=== PATIENT | male | born 1960 | race Caucasian/White ===

== ENCOUNTER 2016-06-01 19:33 | Emergency (ER) | payer SELFPAY ==
[~2016-06-01] VITALS: Ht 172.7 cm; Wt 109.0 kg
[2016-06-01 20:07] VITALS: BP 189/97
== END 2016-06-01 20:45 | disposition left against medical advice (07) ==
LOC: ER 19:35
DX: R41.82 Altered mental status, unspecified (principal); S50.812A Abrasion of left forearm, initial encounter; S50.811A Abrasion of right forearm, initial encounter; I11.9 Hypertensive heart disease without heart failure; I48.91 Unspecified atrial fibrillation; E78.00 Pure hypercholesterolemia, unspecified; F10.20 Alcohol dependence, uncomplicated; W01.0XXA Fall on same level from slipping, tripping and stumbling without subsequent striking against object, initial encounter; Y93.89 Activity, other specified; Y92.89 Other specified places as the place of occurrence of the external cause; Y99.8 Other external cause status
CPT/HCPCS: 99283; Z7610

== ENCOUNTER 2016-12-19 20:16 | Emergency (ER) | payer MEDICAID ==
[~2016-12-19] VITALS: Ht 172.7 cm; Wt 116.0 kg
[2016-12-20] MEDS ORDERED: MORPHINE SULFATE 1MG/ML 1ML INJ SYR(NEO) IV ONE (05:00)
[2016-12-20] MEDS ORDERED: VANCOMYCIN 1 G PREMIX 200 ML IV SCH (05:00)
[2016-12-20 05:11] LABS: BASOPHILS % 1.1 % (0.0-2.0); EOSINOPHILS % 3.8 % (0.0-5.0); HEMATOCRIT. 33.7 % (42.0-52.0); HEMOGLOBIN. 11.1 g/dL (14.0-18.0); LYMPHOCYTES % 23.7 % (20.0-50.0); MEAN CORPUSCULAR HEMOGLOBIN 31.1 pg (28.0-32.0); MEAN CORPUSCULAR VOLUME 94.7 fL (80.0-94.0); MEAN PLATELET VOLUME 8.4 fl (7.4-10.4); MONOCYTES % 10.7 % (2.0-8.0); NEUTROPHILS % 60.7 % (40.0-76.0); PLATELET 131 x1000/uL (130-400); RED BLOOD CELL COUNT 3.56 mill/uL (4.7-6.1); RED CELL DISTRIBUTION WIDTH 17.3 % (11.6-14.6)
[2016-12-20] MEDS ORDERED: MORPHINE SULFATE 4 MG/ML CPJ (NOT FOR IM USE) IV NR (05:19)
[2016-12-20 05:21] LABS: CARBON DIOXIDE 25 mEq/L (21-32); CHLORIDE 103 mEq/L (98-107)
[2016-12-20 05:48] VITALS: BP 160/113
== END 2016-12-20 08:40 | disposition home or self-care (01) ==
LOC: ER 20:43
DX: L03.116 Cellulitis of left lower limb (principal); I10 Essential (primary) hypertension; E78.00 Pure hypercholesterolemia, unspecified; I48.91 Unspecified atrial fibrillation
CPT/HCPCS: 36415; 73630; 80048; 85025; 93971; 96365; 96366; 96375; 99285; J2270; J3370; Z7610

== ENCOUNTER 2017-05-28 16:15 | Emergency (ER) | payer MEDICAID ==
[~2017-05-28] VITALS: Ht 175.3 cm; Wt 110.0 kg
[2017-05-28 20:38] VITALS: BP 127/82
== END 2017-05-28 20:45 | disposition home or self-care (01) ==
LOC: ER 16:29
DX: S93.492A Sprain of other ligament of left ankle, initial encounter (principal); M25.552 Pain in left hip; E78.00 Pure hypercholesterolemia, unspecified; F10.129 Alcohol abuse with intoxication, unspecified; I10 Essential (primary) hypertension; I48.91 Unspecified atrial fibrillation; W18.30XA Fall on same level, unspecified, initial encounter; Y93.01 Activity, walking, marching and hiking; Y99.8 Other external cause status; Y92.89 Other specified places as the place of occurrence of the external cause
CPT/HCPCS: 73502; 73610; 99284; Z7610

== ENCOUNTER 2017-07-08 15:28 | Emergency (ER) | payer MEDICAID ==
[~2017-07-08] VITALS: Ht 180.3 cm; Wt 105.0 kg
[2017-07-08] MEDS ORDERED: ONDANSETRON HCL 4MG/2ML VIAL IV ONE (17:45)
[2017-07-08] MEDS ORDERED: SODIUM CHLORIDE 0.9% 1,000 ML IV ONE (17:45)
[2017-07-08] MEDS ORDERED: TETANUS, DIPHTHERIA, PERTUSSIS VAC/PF 0.5ML (>7YR OLD) IM ONE (17:45)
[2017-07-08] MEDS ORDERED: ACETAMINOPHEN 325MG TABLET PO ONE (17:45)
[2017-07-08 18:36] LABS: *AMPHETAMINES SCREEN URINE NEGATIVE (NEGATIVE); *BARBITURATES SCREEN URINE NEGATIVE (NEGATIVE); *BENZODIAZEPINES SCREEN URINE NEGATIVE (NEGATIVE); *COCAINE SCREEN URINE NEGATIVE (NEGATIVE)
[2017-07-08 18:37] LABS: CANNABINOID URINE SCREEN NEGATIVE (NEGATIVE); METHADONE URINE SCREEN NEGATIVE (NEGATIVE); OPIATES URINE SCREEN NEGATIVE (NEGATIVE); PHENCYCLIDINE URINE SCREEN NEGATIVE (NEGATIVE)
[2017-07-09 01:51] VITALS: BP 132/80
== END 2017-07-09 02:21 | disposition home or self-care (01) ==
LOC: ER 15:34
DX: S00.81XA Abrasion of other part of head, initial encounter (principal); F10.129 Alcohol abuse with intoxication, unspecified; M25.562 Pain in left knee; M25.551 Pain in right hip; I48.91 Unspecified atrial fibrillation; I10 Essential (primary) hypertension; E78.00 Pure hypercholesterolemia, unspecified; W10.9XXA Fall (on) (from) unspecified stairs and steps, initial encounter; Y93.89 Activity, other specified; Y92.89 Other specified places as the place of occurrence of the external cause; Y99.8 Other external cause status
CPT/HCPCS: 36415; 70450; 70486; 72170; 73562; 80305; 90471; 90715; 96361; 96374; 99285; G0482; J2405; J7030; Z7610

== ENCOUNTER 2019-04-13 13:03 | Emergency (ER) | payer MEDICAID ==
[~2019-04-13] VITALS: Ht 172.7 cm; Wt 118.0 kg
[2019-04-13] MEDS ORDERED: IBUPROFEN 600MG TABLET PO ONE (15:15)
[2019-04-13] MEDS ORDERED: AMOXICILLIN/POTASSIUM CLAVULANATE 875/125MG TAB PO ONE (15:15)
[2019-04-13 15:23] VITALS: BP 141/96
== END 2019-04-13 16:05 | disposition home or self-care (01) ==
LOC: ER 13:19
DX: H66.012 Acute suppurative otitis media with spontaneous rupture of ear drum, left ear (principal); I10 Essential (primary) hypertension; I48.91 Unspecified atrial fibrillation; E78.00 Pure hypercholesterolemia, unspecified
CPT/HCPCS: 99283

== ENCOUNTER 2020-07-25 00:36 | Emergency (ER) | payer MEDICAID ==
[~2020-07-25] VITALS: Ht 172.7 cm; Wt 118.0 kg
[~2020-07-25 00:36] MED LIST: ACET-2708 MT; ASPI-1406 MT; AZIT250T12 PO; CARV25TA47 MT; FURO40TA5 PO; SPIR25TA PO
[2020-07-25] MEDS ORDERED: BACITRACIN ZINC OINT UDPKT TOP ONE (01:45)
[2020-07-25 03:15] VITALS: BP 103/74
[2020-07-25 04:08] LABS: HEMATOCRIT. 25.1 % (42.0-52.0); HEMOGLOBIN. 8.1 g/dL (14.0-18.0); MEAN CORPUSCULAR HEMOGLOBIN 29.9 pg (28.0-32.0); MEAN CORPUSCULAR VOLUME 93.1 fL (80.0-94.0); MEAN PLATELET VOLUME 7.8 fl (7.4-10.4); PLATELET 126 x1000/uL (130-400); RED CELL DISTRIBUTION WIDTH 17.3 % (11.6-14.6)
[2020-07-25] MEDS ORDERED: LIDOCAINE HCL/EPINEPHRINE 1%-EPI 1:100,000 10 ML VIAL IJ ONE (04:30)
[2020-07-25] MEDS ORDERED: LIDOCAINE HCL/EPINEPHRINE 1%-EPI 1:100,000 20 ML VIAL INFIL SCH (06:15)
[2020-07-25 07:06] LABS: PLATELET ESTIMATE NORMAL
== END 2020-07-25 03:15 | disposition home or self-care (01) ==
LOC: ER 01:33
DX: I83.892 Varicose veins of left lower extremity with other complications (principal); I49.9 Cardiac arrhythmia, unspecified; I11.0 Hypertensive heart disease with heart failure; I50.9 Heart failure, unspecified; E78.00 Pure hypercholesterolemia, unspecified; Z79.82 Long term (current) use of aspirin; Z79.899 Other long term (current) drug therapy
CPT/HCPCS: 12001; 36415; 85025; 93005; 99284; J3490

== ENCOUNTER 2020-08-10 23:36 | Inpatient (IN) | payer MEDICAID ==
[~2020-08-10] VITALS: Ht 172.7 cm; Wt 121.8 kg
[2020-08-11] VITALS (7 sets, daily range): BP systolic 85–110; BP diastolic 53–61
[2020-08-11] MEDS ORDERED: ACETAMINOPHEN 325MG TABLET PO STA (00:32)
[2020-08-11] MEDS ORDERED: SODIUM CHLORIDE 0.9% 500 ML IV ONE (00:45)
[2020-08-11 00:52] LABS: CLARITY URINE CLEAR (CLEAR); COLOR URINE YELLOW (YELLOW); KETONES URINE NEGATIVE (NEGATIVE); LEUKOCYTE ESTERASE URINE NEGATIVE (NEGATIVE); NITRITE URINE NEGATIVE (NEGATIVE); OCCULT BLOOD URINE NEGATIVE (NEGATIVE); PROTEIN URINE NEGATIVE (NEGATIVE); SPECIFIC GRAVITY URINE 1.016 (1.005-1.030)
[2020-08-11 01:14] LABS: MEAN CORPUSCULAR HEMOGLOBIN 30.4 pg (28.0-32.0); MEAN CORPUSCULAR VOLUME 92.9 fL (80.0-94.0); MEAN PLATELET VOLUME 7.8 fl (7.4-10.4); PLATELET 115 x1000/uL (130-400); RED BLOOD CELL COUNT 1.93 mill/uL (4.7-6.1); RED CELL DISTRIBUTION WIDTH 17.4 % (11.6-14.6)
[2020-08-11 01:19] LABS: HEMOGLOBIN. 5.9 g/dL (14.0-18.0)
[2020-08-11 01:20] LABS: CHLORIDE 98 mEq/L (98-107); HEMATOCRIT. 17.9 % (42.0-52.0)
[2020-08-11 07:46] LABS: PLATELET ESTIMATE SLIGHTLY DECREASED
[2020-08-11] MEDS ORDERED: ACETAMINOPHEN 325MG TABLET PO PRN (09:00)
[2020-08-11] MEDS ORDERED: ONDANSETRON HCL 4MG/2ML INJ IV PRN (09:00)
[2020-08-11] MEDS: PANTOPRAZOLE SODIUM 40 MG/VIAL IV SCH ×2 (09:49→21:25)
[2020-08-11] MEDS: MIDODRINE HCL 5MG TABLET PO SCH ×3 (09:49→17:52)
[2020-08-11 11:20] LABS: *AMPHETAMINES SCREEN URINE NEGATIVE (NEGATIVE); *BARBITURATES SCREEN URINE NEGATIVE (NEGATIVE); *BENZODIAZEPINES SCREEN URINE NEGATIVE (NEGATIVE); *COCAINE SCREEN URINE NEGATIVE (NEGATIVE); METHADONE URINE SCREEN NEGATIVE (NEGATIVE); OPIATES URINE SCREEN NEGATIVE (NEGATIVE)
[2020-08-11 11:21] LABS: CANNABINOID URINE SCREEN NEGATIVE (NEGATIVE); PHENCYCLIDINE URINE SCREEN NEGATIVE (NEGATIVE)
[2020-08-11] MEDS ORDERED: PANTOPRAZOLE SODIUM 40 MG/VIAL IV SCH (11:45)
[2020-08-11 12:36] LABS: TOTAL IRON BINDING CAPACITY 473 ug/dL (250-450)
[2020-08-11 12:52] LABS: FOLIC ACID (FOLATE) SERUM 8.4 ng/mL (>5.38)
[2020-08-11 15:28] LABS: HEMATOCRIT 22.7 % (42.0-52.0); HEMOGLOBIN 7.2 g/dL (14.0-18.0)
[2020-08-11 15:58] LABS: HEPATITIS B SURFACE ANTIGEN NEGATIVE
[2020-08-11 16:28] LABS: HEPATITIS A AB IGM NEGATIVE (NEGATIVE)
[2020-08-11] MEDS ORDERED: SPIR25TA6 PO (16:32)
[2020-08-11] MEDS ORDERED: *PATIENT'S OWN MEDICATION STORAGE XX SCH (17:00)
[2020-08-11] MEDS: POLYETHYLENE GLYCOL 3350 (17GM) 1 DOSE PACK PO SCH (17:51)
[2020-08-11] MEDS: FERROUS SULFATE 325MG TABLET PO SCH (17:51)
[2020-08-12] VITALS (7 sets, daily range): BP systolic 81–95; BP diastolic 44–62
[2020-08-12 01:59] LABS: INR 1.2; PROTHROMBIN TIME 12.7 sec (9.6-11.0)
[2020-08-12 07:08] LABS: HEMATOCRIT. 23.8 % (42.0-52.0); HEMOGLOBIN. 7.6 g/dL (14.0-18.0); MEAN CORPUSCULAR HEMOGLOBIN 29.4 pg (28.0-32.0); MEAN CORPUSCULAR VOLUME 91.6 fL (80.0-94.0); MEAN PLATELET VOLUME 8.1 fl (7.4-10.4); PLATELET 111 x1000/uL (130-400); RED CELL DISTRIBUTION WIDTH 18.7 % (11.6-14.6)
[2020-08-12] MEDS: FERROUS SULFATE 325MG TABLET PO SCH ×3 (08:32→16:42)
[2020-08-12] MEDS: ASCORBIC ACID 500 MG TABLET PO SCH (08:33)
[2020-08-12] MEDS: MIDODRINE HCL 5MG TABLET PO SCH ×3 (08:33→16:42)
[2020-08-12] MEDS: POLYETHYLENE GLYCOL 3350 (17GM) 1 DOSE PACK PO SCH (08:34)
[2020-08-12] MEDS: PANTOPRAZOLE SODIUM 40 MG/VIAL IV SCH ×2 (08:34→21:41)
[2020-08-12 11:40] LABS: NUCLEATED RED BLOOD CELLS 1 /100 WBC
[2020-08-12 11:41] LABS: PLATELET ESTIMATE SLIGHTLY DECREASED
[2020-08-12] MEDS: FUROSEMIDE 20MG/2ML VIAL IVP SCH (13:41)
[2020-08-12] MEDS: SORBITOL 70% SOLN 30ML PO SCH (18:51)
[2020-08-12] MEDS: IRON SUCROSE COMPLEX 100 MG/5 ML ML IV SCH (21:41)
[2020-08-12] MEDS ORDERED: SODIUM CHLORIDE 0.9% 1,000 ML IV ONE (23:15)
[2020-08-13] VITALS (11 sets, daily range): BP systolic 80–104; BP diastolic 41–90
[2020-08-13] MEDS: SORBITOL 70% SOLN 30ML PO SCH (02:30)
[2020-08-13 07:25] LABS: HEMATOCRIT. 21.9 % (42.0-52.0); MEAN CORPUSCULAR HEMOGLOBIN 28.8 pg (28.0-32.0); MEAN CORPUSCULAR VOLUME 90.7 fL (80.0-94.0); MEAN PLATELET VOLUME 7.9 fl (7.4-10.4); PLATELET 129 x1000/uL (130-400); RED BLOOD CELL COUNT 2.41 mill/uL (4.7-6.1); RED CELL DISTRIBUTION WIDTH 18.1 % (11.6-14.6)
[2020-08-13] MEDS: FERROUS SULFATE 325MG TABLET PO SCH ×3 (08:12→18:32)
[2020-08-13] MEDS: ASCORBIC ACID 500 MG TABLET PO SCH (08:13)
[2020-08-13] MEDS: MIDODRINE HCL 5MG TABLET PO SCH ×3 (08:13→18:32)
[2020-08-13] MEDS: PANTOPRAZOLE SODIUM 40 MG/VIAL IV SCH ×2 (08:14→20:53)
[2020-08-13] MEDS: FUROSEMIDE 20MG/2ML VIAL IVP SCH (08:14)
[2020-08-13] MEDS: POLYETHYLENE GLYCOL 3350 (17GM) 1 DOSE PACK PO SCH (08:14)
[2020-08-13 10:05] LABS: PLATELET ESTIMATE SLIGHTLY DECREASED
[2020-08-13] MEDS ORDERED: SORBITOL 70% SOLN 30ML PO PRN (13:30)
[2020-08-13] MEDS: IRON SUCROSE COMPLEX 100 MG/5 ML ML IV SCH (20:53)
[2020-08-14] VITALS (11 sets, daily range): BP systolic 82–103; BP diastolic 38–67
[2020-08-14 06:39] LABS: HEMATOCRIT. 22.5 % (42.0-52.0); HEMOGLOBIN. 7.4 g/dL (14.0-18.0); MEAN CORPUSCULAR HEMOGLOBIN 29.8 pg (28.0-32.0); MEAN CORPUSCULAR VOLUME 90.6 fL (80.0-94.0); MEAN PLATELET VOLUME 7.5 fl (7.4-10.4); PLATELET 125 x1000/uL (130-400); RED BLOOD CELL COUNT 2.49 mill/uL (4.7-6.1); RED CELL DISTRIBUTION WIDTH 18.4 % (11.6-14.6)
[2020-08-14] MEDS: FUROSEMIDE 20MG/2ML VIAL IVP SCH (08:35)
[2020-08-14] MEDS: PANTOPRAZOLE SODIUM 40 MG/VIAL IV SCH ×2 (08:36→20:46)
[2020-08-14] MEDS: MIDODRINE HCL 5MG TABLET PO SCH ×3 (08:36→17:59)
[2020-08-14] MEDS: FERROUS SULFATE 325MG TABLET PO SCH ×3 (08:36→17:59)
[2020-08-14] MEDS: POLYETHYLENE GLYCOL 3350 (17GM) 1 DOSE PACK PO SCH (08:36)
[2020-08-14] MEDS: ASCORBIC ACID 500 MG TABLET PO SCH (08:36)
[2020-08-14 11:56] LABS: NUCLEATED RED BLOOD CELLS 1 /100 WBC
[2020-08-14 11:57] LABS: PLATELET ESTIMATE NORMAL
[2020-08-14] MEDS ORDERED: SORBITOL 70% SOLN 30ML PO NR ×2 (13:00→17:00)
[2020-08-14] MEDS: IRON SUCROSE COMPLEX 100 MG/5 ML ML IV SCH (19:53)
[2020-08-14 20:46] LABS: HEMATOCRIT 25.9 % (42.0-52.0); HEMOGLOBIN 8.5 g/dL (14.0-18.0)
[2020-08-15] VITALS: BP 91/57
[2020-08-15 04:00] VITALS: BP 97/70
[2020-08-15 06:27] LABS: INR 1.2; PROTHROMBIN TIME 12.7 sec (9.6-11.0)
[2020-08-15 06:32] LABS: CHLORIDE 105 mEq/L (98-107)
[2020-08-15 06:44] LABS: HEMATOCRIT. 28.7 % (42.0-52.0); HEMOGLOBIN. 8.7 g/dL (14.0-18.0); MEAN CORPUSCULAR VOLUME 98.7 fL (80.0-94.0); MEAN PLATELET VOLUME 7.9 fl (7.4-10.4); PLATELET 128 x1000/uL (130-400); RED BLOOD CELL COUNT 2.91 mill/uL (4.7-6.1); RED CELL DISTRIBUTION WIDTH 19.1 % (11.6-14.6)
[2020-08-15 08:00] VITALS: BP 103/73
[2020-08-15] MEDS ORDERED: SORBITOL 70% SOLN 30ML PO NR ×2 (09:45→16:00)
[2020-08-15] MEDS: PANTOPRAZOLE SODIUM 40 MG/VIAL IV SCH ×2 (09:58→20:58)
[2020-08-15] MEDS: POLYETHYLENE GLYCOL 3350 (17GM) 1 DOSE PACK PO SCH (09:59)
[2020-08-15] MEDS: MIDODRINE HCL 5MG TABLET PO SCH ×3 (09:59→18:48)
[2020-08-15] MEDS: FERROUS SULFATE 325MG TABLET PO SCH ×3 (09:59→18:48)
[2020-08-15] MEDS: ASCORBIC ACID 500 MG TABLET PO SCH (09:59)
[2020-08-15] MEDS: FUROSEMIDE 20MG/2ML VIAL IVP SCH (10:04)
[2020-08-15 12:00] VITALS: BP 101/61
[2020-08-15 16:00] VITALS: BP 104/65
[2020-08-15 16:17] LABS: PLATELET ESTIMATE DECREASED
[2020-08-15 21:28] VITALS: BP 96/62
[2020-08-16] VITALS (7 sets, daily range): BP systolic 92–127; BP diastolic 61–99
[2020-08-16 06:52] LABS: HEMATOCRIT. 26.9 % (42.0-52.0); HEMOGLOBIN. 8.7 g/dL (14.0-18.0); MEAN CORPUSCULAR HEMOGLOBIN 29.9 pg (28.0-32.0); MEAN CORPUSCULAR VOLUME 92.3 fL (80.0-94.0); MEAN PLATELET VOLUME 7.1 fl (7.4-10.4); PLATELET 147 x1000/uL (130-400); RED BLOOD CELL COUNT 2.91 mill/uL (4.7-6.1); RED CELL DISTRIBUTION WIDTH 18.3 % (11.6-14.6)
[2020-08-16 06:58] LABS: CHLORIDE 105 mEq/L (98-107)
[2020-08-16] MEDS: FERROUS SULFATE 325MG TABLET PO SCH ×3 (07:40→17:40)
[2020-08-16] MEDS: PANTOPRAZOLE SODIUM 40 MG/VIAL IV SCH ×2 (08:46→22:23)
[2020-08-16] MEDS: FUROSEMIDE 20MG/2ML VIAL IVP SCH (08:46)
[2020-08-16] MEDS: POLYETHYLENE GLYCOL 3350 (17GM) 1 DOSE PACK PO SCH (08:47)
[2020-08-16] MEDS: MIDODRINE HCL 5MG TABLET PO SCH ×3 (08:47→17:00)
[2020-08-16] MEDS: ASCORBIC ACID 500 MG TABLET PO SCH (08:47)
[2020-08-16] MEDS ORDERED: MIDAZOLAM HCL 5 MG/5 ML VIAL ONE (15:55)
[2020-08-16] MEDS ORDERED: HYDROMORPHONE HCL/PF 2MG/ML (OR) ONE (15:55)
[2020-08-16] MEDS ORDERED: LIDOCAINE HCL/PF 1% 10 MG/ML 5ML VIAL ONE (15:57)
[2020-08-16] MEDS ORDERED: PROPOFOL 200MG/20ML VIAL IV ONE (15:57)
[2020-08-16] MEDS ORDERED: MEPERIDINE HCL/PF 25MG/ML CPJ IV PRN (16:30)
[2020-08-16] MEDS ORDERED: ONDANSETRON HCL 4MG/2ML INJ IV PRN (16:30)
[2020-08-16] MEDS ORDERED: HYDROMORPHONE HCL/PF 2MG/ML CPJ IV PRN (16:30)
[2020-08-16] MEDS ORDERED: LABETALOL 5MG/ML SYR 20 MG/4 ML SYRINGE IV PRN (16:30)
[2020-08-16 17:41] LABS: PLATELET ESTIMATE NORMAL
[2020-08-16 21:05] LABS: CHLORIDE 105 mEq/L (98-107)
[2020-08-16 23:50] LABS: HEMATOCRIT 30.1 % (42.0-52.0); HEMOGLOBIN 9.6 g/dL (14.0-18.0); MEAN CORPUSCULAR HEMOGLOBIN 29.5 pg (28.0-32.0); MEAN CORPUSCULAR VOLUME 92.1 fL (80.0-94.0); PLATELET 173 x1000/uL (130-400); RED BLOOD CELL COUNT 3.26 mill/uL (4.7-6.1); RED CELL DISTRIBUTION WIDTH 18.4 % (11.6-14.6)
[2020-08-17 04:00] VITALS: BP 105/61
[2020-08-17 08:43] VITALS: BP 101/62
[2020-08-17] MEDS: FUROSEMIDE 20MG/2ML VIAL IVP SCH (08:46)
[2020-08-17] MEDS: ASCORBIC ACID 500 MG TABLET PO SCH (08:47)
[2020-08-17] MEDS: MIDODRINE HCL 5MG TABLET PO SCH ×3 (08:47→17:06)
[2020-08-17] MEDS: POLYETHYLENE GLYCOL 3350 (17GM) 1 DOSE PACK PO SCH (08:47)
[2020-08-17] MEDS: FERROUS SULFATE 325MG TABLET PO SCH ×3 (08:47→17:06)
[2020-08-17] MEDS: PANTOPRAZOLE SODIUM 40 MG/VIAL IV SCH ×2 (08:47→20:45)
[2020-08-17 12:00] VITALS: BP 101/73
[2020-08-17 16:00] VITALS: BP 105/59
[2020-08-17] MEDS: GUAIFENESIN-DM 200MG-20MG/10ML UDC PO PRN (17:06)
[2020-08-17 20:00] VITALS: BP 100/68
[2020-08-18 00:07] VITALS: BP 102/64
[2020-08-18 04:00] VITALS: BP 109/63
[2020-08-18] MEDS: FERROUS SULFATE 325MG TABLET PO SCH ×3 (06:41→17:11)
[2020-08-18 07:57] VITALS: BP 91/59
[2020-08-18] MEDS: POLYETHYLENE GLYCOL 3350 (17GM) 1 DOSE PACK PO SCH (09:00)
[2020-08-18 10:14] LABS: CHLORIDE 102 mEq/L (98-107)
[2020-08-18] MEDS: FUROSEMIDE 20MG/2ML VIAL IVP SCH (11:01)
[2020-08-18] MEDS: ASCORBIC ACID 500 MG TABLET PO SCH (11:02)
[2020-08-18] MEDS: PANTOPRAZOLE SODIUM 40 MG/VIAL IV SCH ×2 (11:02→20:19)
[2020-08-18] MEDS: MIDODRINE HCL 5MG TABLET PO SCH ×3 (11:02→17:14)
[2020-08-18 12:29] VITALS: BP 101/58
[2020-08-18 16:00] VITALS: BP 110/66
[2020-08-18 20:00] VITALS: BP 116/55
[2020-08-19] VITALS: BP 106/51
[2020-08-19 04:00] VITALS: BP 103/50
[2020-08-19] MEDS: FERROUS SULFATE 325MG TABLET PO SCH ×3 (06:47→17:00)
[2020-08-19] MEDS ORDERED: DIATR MEGLU/DIATRIZOATE SOLN 30ML PO NR (08:30)
[2020-08-19 08:39] VITALS: BP 113/70
[2020-08-19] MEDS: ASCORBIC ACID 500 MG TABLET PO SCH (08:44)
[2020-08-19] MEDS: PANTOPRAZOLE SODIUM 40 MG/VIAL IV SCH ×2 (08:44→20:38)
[2020-08-19] MEDS: MIDODRINE HCL 5MG TABLET PO SCH ×3 (08:45→17:00)
[2020-08-19] MEDS: FUROSEMIDE 20MG/2ML VIAL IVP SCH (08:45)
[2020-08-19] MEDS ORDERED: MAGNESIUM CITRATE 300ML SOLUTION PO ONE (09:00)
[2020-08-19 11:48] VITALS: BP 118/65
[2020-08-19] MEDS: POLYETHYLENE GLYCOL 3350 (17GM) 1 DOSE PACK PO SCH (11:58)
[2020-08-19] MEDS: METRONIDAZOLE 500MG TABLET PO SCH ×2 (12:48→14:21)
[2020-08-19] MEDS: NEOMYCIN 500MG TABLET PO SCH ×2 (12:49→15:14)
[2020-08-19] MEDS ORDERED: NEOMYCIN 500MG TABLET PO NR (15:15)
[2020-08-19] MEDS ORDERED: IOHEXOL-300 100 ML BOTTLE ONE (15:24)
[2020-08-19 15:56] VITALS: BP 110/60
[2020-08-19 20:00] VITALS: BP 122/80
[2020-08-19] MEDS ORDERED: NEOMYCIN 500MG TABLET PO SCH (23:00)
[2020-08-19] MEDS ORDERED: METRONIDAZOLE 500MG TABLET PO ONE (23:00)
[2020-08-20] VITALS: BP 120/70
[2020-08-20 04:00] VITALS: BP 112/62
[2020-08-20] MEDS: FERROUS SULFATE 325MG TABLET PO SCH ×3 (06:05→17:27)
[2020-08-20 07:02] LABS: CHLORIDE 102 mEq/L (98-107)
[2020-08-20] MEDS ORDERED: POLYMYXIN B SULFATE 500000 UNITS/VIAL ONE (07:03)
[2020-08-20] MEDS ORDERED: BUPIVACAINE HCL 0.5% (5MG/ML) 50ML ONE (07:03)
[2020-08-20] MEDS ORDERED: LIDOCAINE HCL 1% 20ML VIAL (Pyxis) INJ ONE (07:03)
[2020-08-20 07:22] LABS: HEMATOCRIT. 26.4 % (42.0-52.0); HEMOGLOBIN. 8.7 g/dL (14.0-18.0); MEAN CORPUSCULAR HEMOGLOBIN 29.5 pg (28.0-32.0); MEAN CORPUSCULAR VOLUME 89.5 fL (80.0-94.0); MEAN PLATELET VOLUME 6.9 fl (7.4-10.4); PLATELET 156 x1000/uL (130-400); RED BLOOD CELL COUNT 2.95 mill/uL (4.7-6.1); RED CELL DISTRIBUTION WIDTH 17.9 % (11.6-14.6)
[2020-08-20] MEDS ORDERED: ROCURONIUM BROMIDE 10MG/ML VIAL 5ML IV ONE (07:57)
[2020-08-20] MEDS ORDERED: HYDROMORPHONE HCL/PF 2MG/ML (OR) ONE (07:57)
[2020-08-20] MEDS ORDERED: DEXAMETHASONE 4MG/ML 1ML VIAL ONE (07:58)
[2020-08-20] MEDS: FUROSEMIDE 20MG/2ML VIAL IVP SCH (09:00)
[2020-08-20] MEDS: MIDODRINE HCL 5MG TABLET PO SCH ×3 (09:00→17:00)
[2020-08-20] MEDS: POLYETHYLENE GLYCOL 3350 (17GM) 1 DOSE PACK PO SCH (09:00)
[2020-08-20] MEDS: ASCORBIC ACID 500 MG TABLET PO SCH (09:00)
[2020-08-20] MEDS: PANTOPRAZOLE SODIUM 40 MG/VIAL IV SCH ×2 (09:00→20:35)
[2020-08-20] MEDS ORDERED: ALBUMIN HUMAN 25GM/100ML (25%) IV ONE (09:26)
[2020-08-20] MEDS ORDERED: METOPROLOL TARTRATE 5MG/5ML VIAL IV ONE (10:52)
[2020-08-20] MEDS ORDERED: ONDANSETRON HCL 4MG/2ML INJ IV PRN (11:00)
[2020-08-20] MEDS ORDERED: LABETALOL 5MG/ML SYR 20 MG/4 ML SYRINGE IV PRN (11:00)
[2020-08-20] MEDS ORDERED: MEPERIDINE HCL/PF 25MG/ML CPJ IV PRN (11:00)
[2020-08-20] MEDS ORDERED: HYDROMORPHONE HCL/PF 2MG/ML CPJ IV PRN (11:00)
[2020-08-20] MEDS ORDERED: ONDANSETRON INJ IV PRN (11:15)
[2020-08-20] MEDS ORDERED: NALOXONE INJ IV PRN (11:15)
[2020-08-20] MEDS ORDERED: HYDROMORPHONE PCA 10MG/50ML IV PRN (11:15)
[2020-08-20] MEDS ORDERED: DIPHENHYDRAMINE INJ IV PRN (11:15)
[2020-08-20 14:00] VITALS: BP 120/61
[2020-08-20 16:00] VITALS: BP 135/72
[2020-08-20 17:22] LABS: HEMATOCRIT. 27.4 % (42.0-52.0); HEMOGLOBIN. 8.9 g/dL (14.0-18.0); MEAN CORPUSCULAR HEMOGLOBIN 29.7 pg (28.0-32.0); MEAN CORPUSCULAR VOLUME 91.5 fL (80.0-94.0); MEAN PLATELET VOLUME 6.6 fl (7.4-10.4); PLATELET 179 x1000/uL (130-400); RED CELL DISTRIBUTION WIDTH 18.6 % (11.6-14.6)
[2020-08-20 18:26] LABS: PLATELET ESTIMATE NORMAL
[2020-08-20] MEDS: DEXT 5%/0.45% NACL KCL 20MEQ/L 1,000 ML IV SCH (18:53)
[2020-08-20 20:00] VITALS: BP 95/62
[2020-08-20 21:28] LABS: PLATELET ESTIMATE NORMAL
[2020-08-21] VITALS: BP 112/68
[2020-08-21] MEDS: DEXT 5%/0.45% NACL KCL 20MEQ/L 1,000 ML IV SCH ×2 (02:43→11:02)
[2020-08-21 04:00] VITALS: BP 113/54
[2020-08-21] MEDS: FERROUS SULFATE 325MG TABLET PO SCH ×3 (06:08→17:34)
[2020-08-21 06:46] LABS: CHLORIDE 105 mEq/L (98-107)
[2020-08-21 07:56] LABS: HEMOGLOBIN. 9.3 g/dL (14.0-18.0); MEAN CORPUSCULAR HEMOGLOBIN 29.9 pg (28.0-32.0); MEAN CORPUSCULAR VOLUME 89.6 fL (80.0-94.0); MEAN PLATELET VOLUME 7.3 fl (7.4-10.4); PLATELET 139 x1000/uL (130-400); RED BLOOD CELL COUNT 3.12 mill/uL (4.7-6.1); RED CELL DISTRIBUTION WIDTH 18.3 % (11.6-14.6)
[2020-08-21 08:00] VITALS: BP 104/71
[2020-08-21] MEDS ORDERED: HYDROMORPHONE HCL/PF 2MG/ML CPJ * PRN (08:30)
[2020-08-21] MEDS: MIDODRINE HCL 5MG TABLET PO SCH ×3 (09:00→17:00)
[2020-08-21] MEDS: ASCORBIC ACID 500 MG TABLET PO SCH (09:00)
[2020-08-21] MEDS: POLYETHYLENE GLYCOL 3350 (17GM) 1 DOSE PACK PO SCH (09:00)
[2020-08-21] MEDS: PANTOPRAZOLE SODIUM 40 MG/VIAL IV SCH ×2 (09:04→23:08)
[2020-08-21] MEDS: FUROSEMIDE 20MG/2ML VIAL IVP SCH (09:04)
[2020-08-21] MEDS ORDERED: SODIUM CHLORIDE 0.9% 1,000 ML IV ONE (09:15)
[2020-08-21 11:10] LABS: NUCLEATED RED BLOOD CELLS 1 /100 WBC
[2020-08-21 11:11] LABS: PLATELET ESTIMATE NORMAL
[2020-08-21 12:00] VITALS: BP 112/65
[2020-08-21] MEDS ORDERED: ENOXAPARIN 120MG/0.8ML SYR SUBCUT SCH (12:12)
[2020-08-21 16:00] VITALS: BP 108/77
[2020-08-21 20:00] VITALS: BP 128/77
[2020-08-21] MEDS ORDERED: TOTAL PARENTERAL NUTRITION 1,400 ML IV SCH (21:00)
[2020-08-21] MEDS: FAT EMULSIONS 500 ML IV SCH (21:25)
[2020-08-21] MEDS: SODIUM CHLORIDE 0.45% 1,000 ML IV SCH (23:07)
[2020-08-21] MEDS: ENOXAPARIN 120MG/0.8ML SYR SUBCUT SCH (23:10)
[2020-08-22] VITALS: BP 100/69
[2020-08-22] MEDS: BLOOD SUGAR DIAGNOSTIC STRIP TEST SCH ×4 (00:17→17:20)
[2020-08-22 04:00] VITALS: BP 108/61
[2020-08-22 06:46] LABS: CHLORIDE 106 mEq/L (98-107)
[2020-08-22 08:08] VITALS: BP 101/59
[2020-08-22] MEDS: ENOXAPARIN 120MG/0.8ML SYR SUBCUT SCH (09:00)
[2020-08-22] MEDS: FUROSEMIDE 20MG/2ML VIAL IVP SCH (09:43)
[2020-08-22] MEDS: PANTOPRAZOLE SODIUM 40 MG/VIAL IV SCH ×2 (09:43→21:39)
[2020-08-22] MEDS ORDERED: MORPHINE SULFATE 4 MG/ML CPJ (NOT FOR IM USE) IV PRN (10:15)
[2020-08-22 10:30] LABS: HEMATOCRIT. 22.8 % (42.0-52.0); MEAN CORPUSCULAR HEMOGLOBIN 30.7 pg (28.0-32.0); MEAN CORPUSCULAR VOLUME 92.3 fL (80.0-94.0); MEAN PLATELET VOLUME 7.5 fl (7.4-10.4); PLATELET 154 x1000/uL (130-400); RED BLOOD CELL COUNT 2.47 mill/uL (4.7-6.1); RED CELL DISTRIBUTION WIDTH 18.5 % (11.6-14.6)
[2020-08-22 10:35] LABS: HEMOGLOBIN. 7.6 g/dL (14.0-18.0)
[2020-08-22] MEDS: ASCORBIC ACID 500 MG TABLET PO SCH (10:50)
[2020-08-22] MEDS: FERROUS SULFATE 325MG TABLET PO SCH ×3 (10:50→17:18)
[2020-08-22] MEDS: MIDODRINE HCL 5MG TABLET PO SCH ×3 (10:52→17:20)
[2020-08-22 12:01] VITALS: BP 91/59
[2020-08-22 12:29] LABS: PLATELET ESTIMATE NORMAL
[2020-08-22] MEDS: GUAIFENESIN-DM 200MG-20MG/10ML UDC PO PRN (13:41)
[2020-08-22] MEDS: SODIUM CHLORIDE 0.45% 1,000 ML IV SCH (14:43)
[2020-08-22 16:40] VITALS: BP 105/64
[2020-08-22 20:00] VITALS: BP 121/74
[2020-08-22] MEDS: TOTAL PARENTERAL NUTRITION 1,680 ML IV SCH (21:23)
[2020-08-23] VITALS: BP 120/71
[2020-08-23] MEDS: BLOOD SUGAR DIAGNOSTIC STRIP TEST SCH ×4 (00:42→17:42)
[2020-08-23 04:00] VITALS: BP 110/74
[2020-08-23] MEDS: SODIUM CHLORIDE 0.45% 1,000 ML IV SCH (05:59)
[2020-08-23 06:03] LABS: CHLORIDE 105 mEq/L (98-107)
[2020-08-23 06:30] LABS: BASOPHILS % 0.2 % (0.0-2.0); HEMATOCRIT. 23.8 % (42.0-52.0); HEMOGLOBIN. 7.9 g/dL (14.0-18.0); LYMPHOCYTES % 7.4 % (20.0-50.0); MEAN CORPUSCULAR HEMOGLOBIN 30.2 pg (28.0-32.0); MEAN CORPUSCULAR VOLUME 91.6 fL (80.0-94.0); MEAN PLATELET VOLUME 7.4 fl (7.4-10.4); MONOCYTES % 13.1 % (2.0-8.0); NEUTROPHILS % 78.3 % (40.0-76.0); PLATELET 174 x1000/uL (130-400); RED CELL DISTRIBUTION WIDTH 18.1 % (11.6-14.6)
[2020-08-23] MEDS: GUAIFENESIN-DM 200MG-20MG/10ML UDC PO PRN ×2 (07:36→13:15)
[2020-08-23 08:52] VITALS: BP 119/54
[2020-08-23] MEDS: FERROUS SULFATE 325MG TABLET PO SCH ×3 (09:42→17:42)
[2020-08-23] MEDS: PANTOPRAZOLE SODIUM 40 MG/VIAL IV SCH ×2 (09:42→20:55)
[2020-08-23] MEDS: ASCORBIC ACID 500 MG TABLET PO SCH (09:42)
[2020-08-23] MEDS: MIDODRINE HCL 5MG TABLET PO SCH ×3 (09:43→17:41)
[2020-08-23] MEDS: FUROSEMIDE 20MG/2ML VIAL IVP SCH (09:43)
[2020-08-23 12:02] VITALS: BP 114/68
[2020-08-23 16:27] VITALS: BP 124/67
[2020-08-23 20:00] VITALS: BP 118/69
[2020-08-23] MEDS: FAT EMULSIONS 500 ML IV SCH (20:55)
[2020-08-23] MEDS: TOTAL PARENTERAL NUTRITION 1,680 ML IV SCH (20:58)
[2020-08-24] VITALS: BP 106/58
[2020-08-24] MEDS: BLOOD SUGAR DIAGNOSTIC STRIP TEST SCH ×4 (00:29→17:48)
[2020-08-24] MEDS: SODIUM CHLORIDE 0.45% 1,000 ML IV SCH ×2 (03:20→21:47)
[2020-08-24 04:00] VITALS: BP 117/79
[2020-08-24 06:31] LABS: HEMATOCRIT. 24.5 % (42.0-52.0); HEMOGLOBIN. 8.2 g/dL (14.0-18.0); MEAN CORPUSCULAR HEMOGLOBIN 30.3 pg (28.0-32.0); MEAN PLATELET VOLUME 7.1 fl (7.4-10.4); PLATELET 192 x1000/uL (130-400)
[2020-08-24 06:32] LABS: CHLORIDE 105 mEq/L (98-107)
[2020-08-24] MEDS ORDERED: LIDOCAINE HCL 1% 20ML VIAL (Pyxis) INJ ONE (08:04)
[2020-08-24 08:22] VITALS: BP 128/64
[2020-08-24] MEDS: FERROUS SULFATE 325MG TABLET PO SCH ×3 (09:13→17:48)
[2020-08-24] MEDS: MIDODRINE HCL 5MG TABLET PO SCH ×3 (09:13→17:48)
[2020-08-24] MEDS: ASCORBIC ACID 500 MG TABLET PO SCH (09:13)
[2020-08-24] MEDS: ENOXAPARIN 30MG/0.3ML SYR SUBCUT SCH ×2 (09:14→21:44)
[2020-08-24] MEDS: PANTOPRAZOLE SODIUM 40 MG/VIAL IV SCH ×2 (09:15→21:44)
[2020-08-24 09:36] LABS: PLATELET ESTIMATE NORMAL
[2020-08-24 12:10] VITALS: BP 121/71
[2020-08-24 15:51] VITALS: BP 126/68
[2020-08-24 20:00] VITALS: BP 118/66
[2020-08-24] MEDS: TOTAL PARENTERAL NUTRITION 1,680 ML IV SCH (21:47)
[2020-08-25] VITALS: BP 114/69
[2020-08-25] MEDS: GUAIFENESIN-DM 200MG-20MG/10ML UDC PO PRN ×2 (00:25→17:15)
[2020-08-25] MEDS: BLOOD SUGAR DIAGNOSTIC STRIP TEST SCH ×5 (00:36→23:45)
[2020-08-25 04:00] VITALS: BP_SYST 106; BP_SYST 116; BP_DIAS 69; BP_DIAS 70
[2020-08-25 08:00] VITALS: BP 97/67
[2020-08-25] MEDS: FERROUS SULFATE 325MG TABLET PO SCH ×3 (08:12→17:14)
[2020-08-25] MEDS: ASCORBIC ACID 500 MG TABLET PO SCH (08:12)
[2020-08-25] MEDS: MIDODRINE HCL 5MG TABLET PO SCH ×3 (08:12→17:15)
[2020-08-25] MEDS: ENOXAPARIN 30MG/0.3ML SYR SUBCUT SCH ×2 (08:13→20:59)
[2020-08-25] MEDS: PANTOPRAZOLE SODIUM 40 MG/VIAL IV SCH ×2 (08:13→20:59)
[2020-08-25] MEDS ORDERED: TOTAL PARENTERAL NUTRITION 1,680 ML IV SCH (08:37)
[2020-08-25] MEDS: TOTAL PARENTERAL NUTRITION 1,680 ML IV SCH (11:30)
[2020-08-25 12:29] VITALS: BP 99/61
[2020-08-25 16:20] VITALS: BP 117/47
[2020-08-25] MEDS: SODIUM CHLORIDE 0.45% 1,000 ML IV SCH (17:34)
[2020-08-25 20:00] VITALS: BP 103/63
[2020-08-26] VITALS: BP 112/77
[2020-08-26 04:00] VITALS: BP 104/55
[2020-08-26] MEDS: BLOOD SUGAR DIAGNOSTIC STRIP TEST SCH ×3 (06:08→18:00)
[2020-08-26 07:19] LABS: CHLORIDE 103 mEq/L (98-107)
[2020-08-26 07:26] LABS: MEAN CORPUSCULAR HEMOGLOBIN 30.2 pg (28.0-32.0); MEAN CORPUSCULAR VOLUME 90.9 fL (80.0-94.0); MEAN PLATELET VOLUME 7.2 fl (7.4-10.4); PLATELET 197 x1000/uL (130-400); RED BLOOD CELL COUNT 2.64 mill/uL (4.7-6.1); RED CELL DISTRIBUTION WIDTH 18.7 % (11.6-14.6)
[2020-08-26] MEDS: GUAIFENESIN-DM 200MG-20MG/10ML UDC PO PRN (08:51)
[2020-08-26] MEDS: ASCORBIC ACID 500 MG TABLET PO SCH (08:52)
[2020-08-26] MEDS: MIDODRINE HCL 5MG TABLET PO SCH ×3 (08:52→17:01)
[2020-08-26] MEDS: FERROUS SULFATE 325MG TABLET PO SCH ×3 (08:52→17:01)
[2020-08-26] MEDS: ENOXAPARIN 30MG/0.3ML SYR SUBCUT SCH (08:52)
[2020-08-26] MEDS: PANTOPRAZOLE SODIUM 40 MG/VIAL IV SCH (08:53)
[2020-08-26 10:29] VITALS: BP 103/65
[2020-08-26 12:02] VITALS: BP_SYST 100; BP_SYST 102; BP_DIAS 56; BP_DIAS 60
[2020-08-26] MEDS: SODIUM CHLORIDE 0.45% 1,000 ML IV SCH (14:28)
[2020-08-26 15:36] VITALS: BP 104/64
[2020-08-26 16:00] VITALS: BP 104/64
[2020-08-26 17:37] LABS: PLATELET ESTIMATE NORMAL
== END 2020-08-26 19:45 | DRG 231 ==
LOC: ER 23:36 → 8WST 08-11 02:07 → ENRESERV 08-11 13:26 → 8WST 08-11 16:38 → 5EST 08-26 11:25 → 8WST 08-26 11:27
PROVIDERS: ADMIT Internal Medicine; ATTEND Internal Medicine
PROC: 30233N1 Transfusion of Nonautologous Red Blood Cells into Peripheral Vein, Percutaneous Approach (ICD-10-PCS; principal; 2020-08-11)
PROC: 0DB78ZX Excision of Stomach, Pylorus, Via Natural or Artificial Opening Endoscopic, Diagnostic (ICD-10-PCS; 2020-08-16)
PROC: 0DBE8ZX Excision of Large Intestine, Via Natural or Artificial Opening Endoscopic, Diagnostic (ICD-10-PCS; 2020-08-16)
PROC: 0DTN0ZZ Resection of Sigmoid Colon, Open Approach (ICD-10-PCS; 2020-08-20)
PROC: 02HV33Z Insertion of Infusion Device into Superior Vena Cava, Percutaneous Approach (ICD-10-PCS; 2020-08-24)
PROC: B518ZZA Fluoroscopy of Superior Vena Cava, Guidance (ICD-10-PCS; 2020-08-24)
PROC: B548ZZA Ultrasonography of Superior Vena Cava, Guidance (ICD-10-PCS; 2020-08-24)
DX: C18.7 Malignant neoplasm of sigmoid colon (principal); N17.0 Acute kidney failure with tubular necrosis; R57.8 Other shock; D61.818 Other pancytopenia; K29.71 Gastritis, unspecified, with bleeding; E46 Unspecified protein-calorie malnutrition; K57.31 Diverticulosis of large intestine without perforation or abscess with bleeding; I48.20 Chronic atrial fibrillation, unspecified; K63.3 Ulcer of intestine; K44.9 Diaphragmatic hernia without obstruction or gangrene; K64.8 Other hemorrhoids; I11.0 Hypertensive heart disease with heart failure; I50.22 Chronic systolic (congestive) heart failure; E44.1 Mild protein-calorie malnutrition; I27.81 Cor pulmonale (chronic); E87.1 Hypo-osmolality and hyponatremia; I42.9 Cardiomyopathy, unspecified; D50.9 Iron deficiency anemia, unspecified; K74.60 Unspecified cirrhosis of liver; K76.0 Fatty (change of) liver, not elsewhere classified; M16.0 Bilateral primary osteoarthritis of hip; K80.20 Calculus of gallbladder without cholecystitis without obstruction; I34.0 Nonrheumatic mitral (valve) insufficiency; E78.00 Pure hypercholesterolemia, unspecified; Z20.822 Contact with and (suspected) exposure to COVID-19; E78.5 Hyperlipidemia, unspecified; E66.9 Obesity, unspecified; K75.9 Inflammatory liver disease, unspecified; F10.10 Alcohol abuse, uncomplicated; Y90.9 Presence of alcohol in blood, level not specified; E86.0 Dehydration; N28.1 Cyst of kidney, acquired; Z79.82 Long term (current) use of aspirin; Z79.899 Other long term (current) drug therapy; Z79.1 Long term (current) use of non-steroidal anti-inflammatories (NSAID); Z68.41 Body mass index [BMI] 40.0-44.9, adult
CPT/HCPCS: 36415; 36573; 71045; 73610; 74176; 74177; 76700; 80048; 80053; 80076; 80305; 81003; 82248; 82270; 82378; 82607; 82728; 82746; 82962; 83540; 83550; 83735; 83880; 84478; 84484; 85014; 85018; 85025; 85027; 85044; 86705; 86709; 86803; 86850; 86900; 86920; 87340; 87426; 88305; 88312; 88313; 93005; 93306; 97110; 97162; 97164; 97530; 99291; A6261; C1725; C9113; J1100; J1170; J1650; J1940; J2250; J2270; J2405; J2704; J3490; J7040; P9016; P9047; Q9963; Q9967

== ENCOUNTER 2021-07-04 10:24 | Inpatient (IN) | payer MEDICAID ==
[~2021-07-04] VITALS: Ht 177.8 cm; Wt 127.6 kg
[~2021-07-04 10:24] MED LIST changes: +APIX5TAB MT; -ASPI-1406 MT; -AZIT250T12 PO; +CAPE500T PO; +IMOD MT; +MELA5TAB19 MT; +MIDO5TAB4 PO; +ONDA4TAB5 PO; +PROT40 MT; -SPIR25TA PO; +SPIR25TA6 PO
[2021-07-04] MEDS ORDERED: SODIUM CHLORIDE 0.9% 1,000 ML IV ONE (10:45)
[2021-07-04 10:55] LABS: HEMATOCRIT. 24.1 % (42.0-52.0); HEMOGLOBIN. 7.9 g/dL (14.0-18.0); MEAN CORPUSCULAR HEMOGLOBIN 32.9 pg (28.0-32.0); MEAN PLATELET VOLUME 8.6 fl (7.4-10.4); PLATELET 92 x1000/uL (130-400); RED BLOOD CELL COUNT 2.39 mill/uL (4.7-6.1); RED CELL DISTRIBUTION WIDTH 34.1 % (11.6-14.6)
[2021-07-04 11:02] LABS: INR 1.4; PROTHROMBIN TIME 14.9 sec (9.6-11.0)
[2021-07-04 11:06] LABS: CHLORIDE 85 mEq/L (98-107)
[2021-07-04 11:09] LABS: ETHANOL BLOOD < 10 mg/dL
[2021-07-04] MEDS ORDERED: KCL 10MEQ/50ML PREMIX 50 ML IV STA (11:11)
[2021-07-04] MEDS ORDERED: DILTIAZEM HCL 5MG/ML 5ML VIAL IV ONE (11:15)
[2021-07-04] MEDS ORDERED: MAGNESIUM 1 G PREMIX 100 ML IV ONE (11:15)
[2021-07-04] MEDS ORDERED: DEXTROSE 50% WATER 50ML SYRINGE IV ONE ×2 (11:15→17:15)
[2021-07-04] MEDS: POTASSIUM CHLORIDE 20MEQ TABLET SR PO ONE ×2 (11:15→11:27)
[2021-07-04] MEDS ORDERED: CEFEPIME 1,000 MG in DEXTROSE 5% WATER 50 ML IV SCH (11:30)
[2021-07-04] MEDS ORDERED: VANCOMYCIN 1G PREMIX 200 ML IV SCH (11:30)
[2021-07-04] MEDS ORDERED: ASPIRIN 81MG TABLET PO ONE (11:45)
[2021-07-04] MEDS ORDERED: VANCOMYCIN 1GM PMX (XELLIA) 200 ML IV NR (11:45)
[2021-07-04] MEDS ORDERED: VANCOMYCIN 1,000 MG in DEXT 5% WATER 250 ML IV NR (12:00)
[2021-07-04 12:22] LABS: NUCLEATED RED BLOOD CELLS 1 /100 WBC
[2021-07-04 12:26] LABS: PLATELET ESTIMATE DECREASED
[2021-07-04] MEDS ORDERED: DOBUTAMINE 250MG PREMIX 250 ML IV ONE (13:00)
[2021-07-04] MEDS ORDERED: DOBUTAMINE IV NR (13:15)
[2021-07-04] MEDS ORDERED: WATER IV NR (13:15)
[2021-07-04] MEDS ORDERED: DEXT 5% IV NR (13:15)
[2021-07-04] MEDS ORDERED: PHENYLEPHRINE 50 MG in DEXT 5% WATER 245 ML IV STA (13:27)
[2021-07-04] MEDS ORDERED: DOBUTAMINE 250 MG in DEXT 5% WATER 230 ML IV NR (13:30)
[2021-07-04] MEDS ORDERED: POTASSIUM CHLORIDE INJ 40 MEQ in DEXT 5% WATER 250 ML IV ONE (14:15)
[2021-07-04] MEDS ORDERED: PHENYLEPHRINE 50 MG in DEXT 5% WATER 245 ML IV NR (14:30)
[2021-07-04] MEDS ORDERED: KCL 20MEQ/100ML PREMIX 100 ML IV NR ×2 (15:00→17:01)
[2021-07-04] MEDS ORDERED: FUROSEMIDE 40MG/4ML VIAL IVP SCH (17:00)
[2021-07-04] MEDS ORDERED: ONDANSETRON HCL 4MG/2ML INJ IV PRN (17:30)
[2021-07-04] MEDS ORDERED: MAGNESIUM/ALUMINUM HYDROXIDE/SIMETHICONE 30ML UDC PO PRN (17:30)
[2021-07-04] MEDS ORDERED: DEXTROSE 5% WATER 1,000 ML IV ONE (18:00)
[2021-07-04] MEDS ORDERED: NOREPINEPHRINE 8MG/250ML PMX 250 ML IV ONE (19:15)
[2021-07-04] MEDS ORDERED: NOREPINEPHRINE 8MG/250ML PMX 250 ML IV PRN (19:24)
[2021-07-04] MEDS ORDERED: NOREPINEPHRINE 8 MG in DEXTROSE 5% WATER 250 ML IV PRN (19:30)
[2021-07-04] MEDS: BLOOD SUGAR DIAGNOSTIC STRIP TEST SCH ×2 (19:45→21:05)
[2021-07-04] MEDS: INSULIN LISPRO 100 UNITS/ML SUBCUT SCH ×2 (19:55→21:00)
[2021-07-04 20:25] LABS: BG BASE EXCESS 0.5 mmol/L (-2.0-2.0); BG CARBOXYHEMOGLOBIN 0.5 % (0.5-1.5); BG DEOXYHEMOGLOBIN 5.6 % (0.0-5.0); BG HCO3 ACT 25.4 mmol/L (22.0-26.0); BG METHEMOGLOBIN 0.8 % (0.0-1.5); BG OXYGEN SATURATION 94.3 % (92.0-98.5); BG OXYHEMOGLOBIN 93.1 % (94.0-97.0); BG PH 7.399 (7.350-7.450); BG PO2 72.8 mmHg (75.0-100.0); BG SAMPLE SITE LEFT BRACHIAL; BG TOTAL HEMOGLOBIN 8.9 g/dL (12.0-18.0); BG VENT MODE NASAL CANNULA
[2021-07-04] MEDS ORDERED: NOREPINEPHRINE 8 MG in DEXT 5% WATER 242 ML IV STA (21:48)
[2021-07-04] MEDS ORDERED: PHENYLEPHRINE 50 MG in DEXT 5% WATER 245 ML IV SCH (22:00)
[2021-07-04 22:59] VITALS: BP 131/85
[2021-07-04 23:15] VITALS: BP 151/92
[2021-07-04 23:30] VITALS: BP 118/86
[2021-07-04 23:45] VITALS: BP 117/81
[2021-07-04 23:52] VITALS: BP 131/85
[2021-07-05] VITALS (110 sets, daily range): BP systolic 58–149; BP diastolic 23–119
[2021-07-05 00:28] LABS: *AMPHETAMINES SCREEN URINE NEGATIVE (NEGATIVE); *BARBITURATES SCREEN URINE NEGATIVE (NEGATIVE); *BENZODIAZEPINES SCREEN URINE NEGATIVE (NEGATIVE); *COCAINE SCREEN URINE NEGATIVE (NEGATIVE)
[2021-07-05 00:29] LABS: CANNABINOID URINE SCREEN NEGATIVE (NEGATIVE); METHADONE URINE SCREEN NEGATIVE (NEGATIVE); OPIATES URINE SCREEN NEGATIVE (NEGATIVE); PHENCYCLIDINE URINE SCREEN NEGATIVE (NEGATIVE)
[2021-07-05] MEDS ORDERED: PHENYLEPHRINE 50 MG in DEXT 5% WATER 245 ML IV PRN (02:00)
[2021-07-05] MEDS ORDERED: DIGOXIN 500MCG/2ML AMP IV SCH (02:45)
[2021-07-05] MEDS ORDERED: NOREPINEPHRINE 8 MG in DEXT 5% WATER 250 ML IV PRN (03:00)
[2021-07-05] MEDS: DILTIAZEM 125MG/125ML PMX 125 ML IV PRN (03:14)
[2021-07-05] MEDS ORDERED: NOREPINEPHRINE 32 MG in DEXT 5% WATER 250 ML IV PRN (03:37)
[2021-07-05] MEDS ORDERED: PHENYLEPHRINE 100 MG in DEXT 5% WATER 240 ML IV PRN ×2 (03:37→13:39)
[2021-07-05] MEDS: PHENYLEPHRINE 100 MG in DEXT 5% WATER 250 ML IV PRN ×3 (04:40→15:15)
[2021-07-05 04:52] LABS: HEMATOCRIT. 25.6 % (42.0-52.0); HEMOGLOBIN. 8.4 g/dL (14.0-18.0); MEAN CORPUSCULAR HEMOGLOBIN 33.6 pg (28.0-32.0); MEAN CORPUSCULAR VOLUME 102.3 fL (80.0-94.0); MEAN PLATELET VOLUME 8.1 fl (7.4-10.4); PLATELET 83 x1000/uL (130-400); RED CELL DISTRIBUTION WIDTH 31.8 % (11.6-14.6)
[2021-07-05 05:05] LABS: T4 FREE 1.37 ng/dL (0.76-1.46)
[2021-07-05] MEDS: NOREPINEPHRINE 32 MG in DEXTROSE 5% WATER 250 ML IV PRN ×4 (05:50→22:56)
[2021-07-05] MEDS: BLOOD SUGAR DIAGNOSTIC STRIP TEST SCH ×4 (06:13→21:20)
[2021-07-05] MEDS: INSULIN LISPRO 100 UNITS/ML SUBCUT SCH ×4 (06:13→21:00)
[2021-07-05 07:28] LABS: PLATELET ESTIMATE DECREASED
[2021-07-05] MEDS ORDERED: MIDO5TAB4 MT (08:01)
[2021-07-05] MEDS ORDERED: POTASSIUM CHLORIDE INJ 40 MEQ in DEXT 5% WATER 250 ML IV ONE (09:15)
[2021-07-05 10:09] LABS: BG BASE EXCESS -1.2 mmol/L (-2.0-2.0); BG CARBOXYHEMOGLOBIN 1.2 % (0.5-1.5); BG DEOXYHEMOGLOBIN 6.3 % (0.0-5.0); BG FRACTION INSPIRED OXYGEN 32; BG HCO3 ACT 23.7 mmol/L (22.0-26.0); BG METHEMOGLOBIN 0.3 % (0.0-1.5); BG OXYGEN SATURATION 93.6 % (92.0-98.5); BG OXYHEMOGLOBIN 92.2 % (94.0-97.0); BG PCO2 40.4 mmHg (35.0-45.0); BG PH 7.386 (7.350-7.450); BG PO2 71.4 mmHg (75.0-100.0); BG SAMPLE SITE RIGHT RADIAL; BG TOTAL HEMOGLOBIN 9.5 g/dL (12.0-18.0); BG VENT MODE NASAL CANNULA
[2021-07-05] MEDS ORDERED: MAGNESIUM 4 G PREMIX 100 ML IV NR (11:00)
[2021-07-05] MEDS ORDERED: VANCOMYCIN 2,000 MG in DEXT 5% WATER 500 ML IV SCH (11:00)
[2021-07-05] MEDS: VASOPRESSIN 20 UNIT in SODIUM CHLORIDE 0.9% 99 ML IV PRN ×2 (11:21→18:12)
[2021-07-05 11:39] LABS: CLARITY URINE CLOUDY (CLEAR); COLOR URINE DARK YELLOW (YELLOW); KETONES URINE NEGATIVE (NEGATIVE); LEUKOCYTE ESTERASE URINE 1+ (NEGATIVE); NITRITE URINE NEGATIVE (NEGATIVE); OCCULT BLOOD URINE 3+ (NEGATIVE); PROTEIN URINE 1+ (NEGATIVE); SPECIFIC GRAVITY URINE 1.012 (1.005-1.030)
[2021-07-05] MEDS: MEROPENEM 1,000 MG in SODIUM CHLORIDE 0.9% 100 ML IV SCH ×2 (11:52→21:21)
[2021-07-05] MEDS: KCL 20MEQ/100ML X 2 FOR TOTAL KCL 40MEQ/200ML IV SCH ×2 (11:52→13:57)
[2021-07-05 12:03] LABS: SODIUM URINE RANDOM 26 mEq/L
[2021-07-05 12:04] LABS: *BARBITURATES SCREEN URINE NEGATIVE (NEGATIVE)
[2021-07-05 12:05] LABS: *AMPHETAMINES SCREEN URINE NEGATIVE (NEGATIVE); *BENZODIAZEPINES SCREEN URINE NEGATIVE (NEGATIVE); *COCAINE SCREEN URINE NEGATIVE (NEGATIVE); METHADONE URINE SCREEN NEGATIVE (NEGATIVE); OPIATES URINE SCREEN NEGATIVE (NEGATIVE); PHENCYCLIDINE URINE SCREEN NEGATIVE (NEGATIVE)
[2021-07-05 12:06] LABS: CANNABINOID URINE SCREEN NEGATIVE (NEGATIVE)
[2021-07-05] MEDS ORDERED: AMIKACIN SULFATE 250 MG in SODIUM CHLORIDE 0.9% 100 ML IV NR (16:00)
[2021-07-05] MEDS: HYDROCORTISONE SOD SUCCINATE 100 MG/2 ML VIAL IV SCH ×2 (16:10→21:21)
[2021-07-05] MEDS: PHENYLEPHRINE 100 MG in DEXT 5% WATER 240 ML IV PRN ×2 (19:52→23:43)
[2021-07-06] VITALS (110 sets, daily range): BP systolic 63–185; BP diastolic 18–127
[2021-07-06] MEDS: NOREPINEPHRINE 32 MG in DEXTROSE 5% WATER 250 ML IV PRN ×5 (02:42→22:42)
[2021-07-06] MEDS: VASOPRESSIN 20 UNIT in SODIUM CHLORIDE 0.9% 99 ML IV PRN ×3 (02:42→19:43)
[2021-07-06] MEDS: HYDROCORTISONE SOD SUCCINATE 100 MG/2 ML VIAL IV SCH ×3 (05:17→21:35)
[2021-07-06 05:28] LABS: HEMATOCRIT. 30.3 % (42.0-52.0); HEMOGLOBIN. 8.8 g/dL (14.0-18.0); MEAN PLATELET VOLUME 9.4 fl (7.4-10.4); PLATELET 72 x1000/uL (130-400); RED BLOOD CELL COUNT 2.65 mill/uL (4.7-6.1); RED CELL DISTRIBUTION WIDTH 32.2 % (11.6-14.6)
[2021-07-06] MEDS: PHENYLEPHRINE 100 MG in DEXT 5% WATER 240 ML IV PRN ×4 (05:40→19:44)
[2021-07-06] MEDS: INSULIN LISPRO 100 UNITS/ML SUBCUT SCH ×4 (06:47→21:00)
[2021-07-06] MEDS: BLOOD SUGAR DIAGNOSTIC STRIP TEST SCH ×4 (06:47→21:00)
[2021-07-06] MEDS: DILTIAZEM 125MG/125ML PMX 125 ML IV PRN (07:38)
[2021-07-06 08:19] LABS: BG BASE EXCESS -10.6 mmol/L (-2.0-2.0); BG CARBOXYHEMOGLOBIN 0.7 % (0.5-1.5); BG DEOXYHEMOGLOBIN 6.6 % (0.0-5.0); BG HCO3 ACT 22.1 mmol/L (22.0-26.0); BG METHEMOGLOBIN 0.3 % (0.0-1.5); BG OXYGEN SATURATION 93.3 % (92.0-98.5); BG OXYHEMOGLOBIN 92.4 % (94.0-97.0); BG PH 6.958 (7.350-7.450); BG PO2 86.6 mmHg (75.0-100.0); BG SAMPLE SITE LEFT RADIAL; BG TOTAL HEMOGLOBIN 9.8 g/dL (12.0-18.0); BG VENT MODE MASK - SIMPLE
[2021-07-06] MEDS ORDERED: IPRATROPIUM BROMIDE (0.02%) 0.5MG/2.5ML NEB HHN PRN (08:45)
[2021-07-06] MEDS ORDERED: SODIUM CHLORIDE 0.9% 10ML VIAL ONE (08:57)
[2021-07-06] MEDS ORDERED: ETOMIDATE 2MG/ML 10ML VIAL IV ONE (08:57)
[2021-07-06] MEDS ORDERED: VECURONIUM BROMIDE 10 MG/VIAL IV ONE (08:57)
[2021-07-06] MEDS ORDERED: MAGNESIUM 2 G PREMIX 50 ML IV NR (09:00)
[2021-07-06] MEDS: MEROPENEM 1,000 MG in SODIUM CHLORIDE 0.9% 100 ML IV SCH ×2 (09:34→21:35)
[2021-07-06 09:42] LABS: BG BASE EXCESS -5.5 mmol/L (-2.0-2.0); BG CARBOXYHEMOGLOBIN 0.1 % (0.5-1.5); BG DEOXYHEMOGLOBIN 0.3 % (0.0-5.0); BG FRACTION INSPIRED OXYGEN 100; BG HCO3 ACT 18.3 mmol/L (22.0-26.0); BG METHEMOGLOBIN 0.7 % (0.0-1.5); BG OXYGEN SATURATION 99.7 % (92.0-98.5); BG OXYHEMOGLOBIN 98.9 % (94.0-97.0); BG PCO2 29.6 mmHg (35.0-45.0); BG PH 7.408 (7.350-7.450); BG PO2 208.8 mmHg (75.0-100.0); BG SAMPLE SITE LEFT RADIAL; BG TOTAL HEMOGLOBIN 9.9 g/dL (12.0-18.0); BG VENT MODE VENT - AC
[2021-07-06] MEDS ORDERED: FENTANYL CITRATE/PF 2,500 MCG in SODIUM CHLORIDE 0.9% 200 ML IV PRN (09:45)
[2021-07-06] MEDS ORDERED: LIDOCAINE HCL 1% 20ML VIAL (Pyxis) INJ ONE (11:19)
[2021-07-06 12:00] LABS: D-DIMER 33.75 mg/L FEU (<0.50); INR 1.7; PARTIAL THROMBOPLASTIN TIME 41.5 sec (23.4-31.0); PROTHROMBIN TIME 17.7 sec (9.6-11.0)
[2021-07-06] MEDS ORDERED: SODIUM CHLORIDE 3% 200 ML IV SCH (12:00)
[2021-07-06] MEDS ORDERED: MAGNESIUM 2 G PREMIX 50 ML IV SCH (12:00)
[2021-07-06] MEDS: FENTANYL 2500MCG/250ML PMX 250 ML IV PRN (12:18)
[2021-07-06] MEDS: IPRATROPIUM BROMIDE (0.02%) 0.5MG/2.5ML NEB HHN SCH ×3 (12:54→20:35)
[2021-07-06 12:55] LABS: HEPATITIS B SURFACE ANTIGEN NEGATIVE
[2021-07-06] MEDS: ACETAMINOPHEN 325MG TABLET PO PRN ×2 (13:17→18:52)
[2021-07-06] MEDS ORDERED: HEPARIN SODIUM 1,000 UNIT/1ML VIAL IV SCH (14:15)
[2021-07-06] MEDS: ACETYLCYSTEINE 100MG/ML 10% VIAL 4ML INH SCH (16:11)
[2021-07-06 16:33] LABS: PLATELET ESTIMATE DECREASED
[2021-07-06] MEDS: DEXTROSE 50% WATER 50ML SYRINGE IV PRN ×2 (17:49→22:03)
[2021-07-07] VITALS (99 sets, daily range): BP systolic 71–192; BP diastolic 22–120
[2021-07-07] MEDS: PHENYLEPHRINE 100 MG in DEXT 5% WATER 240 ML IV PRN ×5 (00:05→20:45)
[2021-07-07] MEDS: ACETYLCYSTEINE 100MG/ML 10% VIAL 4ML INH SCH ×3 (02:24→15:23)
[2021-07-07] MEDS: IPRATROPIUM BROMIDE (0.02%) 0.5MG/2.5ML NEB HHN SCH ×5 (02:24→15:23)
[2021-07-07] MEDS: NOREPINEPHRINE 32 MG in DEXTROSE 5% WATER 250 ML IV PRN ×5 (03:05→23:34)
[2021-07-07] MEDS: HYDROCORTISONE SOD SUCCINATE 100 MG/2 ML VIAL IV SCH ×3 (05:19→22:00)
[2021-07-07] MEDS: INSULIN LISPRO 100 UNITS/ML SUBCUT SCH ×4 (06:56→21:00)
[2021-07-07] MEDS: BLOOD SUGAR DIAGNOSTIC STRIP TEST SCH ×4 (06:56→21:00)
[2021-07-07] MEDS: MEROPENEM 1,000 MG in SODIUM CHLORIDE 0.9% 100 ML IV SCH ×2 (09:13→22:00)
[2021-07-07] MEDS: DEXT 5%/0.9% NACL 1,000 ML IV SCH (09:24)
[2021-07-07 10:08] LABS: BG BASE EXCESS -16.4 mmol/L (-2.0-2.0); BG CARBOXYHEMOGLOBIN 0.3 % (0.5-1.5); BG DEOXYHEMOGLOBIN 2.3 % (0.0-5.0); BG FRACTION INSPIRED OXYGEN 60; BG HCO3 ACT 10.6 mmol/L (22.0-26.0); BG METHEMOGLOBIN 0.1 % (0.0-1.5); BG OXYGEN SATURATION 97.7 % (92.0-98.5); BG OXYHEMOGLOBIN 97.3 % (94.0-97.0); BG PCO2 29.1 mmHg (35.0-45.0); BG PH 7.178 (7.350-7.450); BG PO2 116.1 mmHg (75.0-100.0); BG SAMPLE SITE LEFT RADIAL; BG TOTAL HEMOGLOBIN 9.8 g/dL (12.0-18.0); BG VENT MODE VENT - AC
[2021-07-07] MEDS ORDERED: SODIUM BICARBONATE 8.4% 1 MEQ/ML 50ML SYR IV ONE (10:15)
[2021-07-07 10:38] LABS: HEMATOCRIT. 34.9 % (42.0-52.0); HEMOGLOBIN. 9.3 g/dL (14.0-18.0); MEAN PLATELET VOLUME 10.3 fl (7.4-10.4); PLATELET 54 x1000/uL (130-400); RED BLOOD CELL COUNT 2.82 mill/uL (4.7-6.1); RED CELL DISTRIBUTION WIDTH 33.9 % (11.6-14.6)
[2021-07-07 10:45] LABS: MEAN CORPUSCULAR VOLUME 123.9 fL (80.0-94.0)
[2021-07-07] MEDS ORDERED: DOPAMINE 400MG/250ML PREMIX 250 ML IV PRN (10:45)
[2021-07-07] MEDS ORDERED: SODIUM BICARBONATE 8.4% 1 MEQ/ML 50ML SYR IV NR (10:45)
[2021-07-07 12:34] LABS: PLATELET ESTIMATE DECREASED
[2021-07-07] MEDS ORDERED: VANCOMYCIN 1GM PMX (XELLIA) 200 ML IV NR (15:00)
[2021-07-07 21:30] LABS: BG BASE EXCESS 0.2 mmol/L (-2.0-2.0); BG CARBOXYHEMOGLOBIN 0.5 % (0.5-1.5); BG DEOXYHEMOGLOBIN 2.1 % (0.0-5.0); BG FRACTION INSPIRED OXYGEN 55; BG HCO3 ACT 23.5 mmol/L (22.0-26.0); BG METHEMOGLOBIN 0.1 % (0.0-1.5); BG OXYGEN SATURATION 97.9 % (92.0-98.5); BG OXYHEMOGLOBIN 97.3 % (94.0-97.0); BG PCO2 33.1 mmHg (35.0-45.0); BG PO2 101.5 mmHg (75.0-100.0); BG SAMPLE SITE RIGHT RADIAL; BG TOTAL HEMOGLOBIN 9.9 g/dL (12.0-18.0); BG VENT MODE VENT - AC
[2021-07-07] MEDS: ACETAMINOPHEN 325MG TABLET PO PRN (23:23)
[2021-07-08] VITALS (92 sets, daily range): BP systolic 90–140; BP diastolic 31–87
[2021-07-08] MEDS: ACETYLCYSTEINE 100MG/ML 10% VIAL 4ML INH SCH ×3 (00:01→15:25)
[2021-07-08] MEDS: IPRATROPIUM BROMIDE (0.02%) 0.5MG/2.5ML NEB HHN SCH ×6 (00:06→21:01)
[2021-07-08] MEDS: DILTIAZEM 125MG/125ML PMX 125 ML IV PRN ×2 (00:24→23:27)
[2021-07-08] MEDS: PHENYLEPHRINE 100 MG in DEXT 5% WATER 240 ML IV PRN ×4 (01:17→20:14)
[2021-07-08 04:14] LABS: HEMOGLOBIN. 9.1 g/dL (14.0-18.0); MEAN CORPUSCULAR HEMOGLOBIN 33.2 pg (28.0-32.0); MEAN PLATELET VOLUME 9.7 fl (7.4-10.4); RED BLOOD CELL COUNT 2.74 mill/uL (4.7-6.1); RED CELL DISTRIBUTION WIDTH 32.2 % (11.6-14.6)
[2021-07-08 04:30] LABS: PHOSPHORUS 1.8 mg/dL (2.5-4.9)
[2021-07-08] MEDS: NOREPINEPHRINE 32 MG in DEXTROSE 5% WATER 250 ML IV PRN ×4 (04:39→23:25)
[2021-07-08] MEDS: ACETAMINOPHEN 325MG TABLET PO PRN (05:36)
[2021-07-08] MEDS: FENTANYL 2500MCG/250ML PMX 250 ML IV PRN (05:39)
[2021-07-08] MEDS: BLOOD SUGAR DIAGNOSTIC STRIP TEST SCH ×4 (06:00→23:21)
[2021-07-08] MEDS: HYDROCORTISONE SOD SUCCINATE 100 MG/2 ML VIAL IV SCH ×3 (06:00→21:45)
[2021-07-08] MEDS: INSULIN LISPRO 100 UNITS/ML SUBCUT SCH ×4 (06:00→23:26)
[2021-07-08] MEDS: ACETAMINOPHEN 650MG/20.3ML UDC PO PRN ×3 (08:31→22:50)
[2021-07-08] MEDS: DEXT 5%/0.9% NACL 1,000 ML IV SCH (08:32)
[2021-07-08 08:45] LABS: BG BASE EXCESS 0.2 mmol/L (-2.0-2.0); BG CARBOXYHEMOGLOBIN 0.9 % (0.5-1.5); BG DEOXYHEMOGLOBIN 3.2 % (0.0-5.0); BG FRACTION INSPIRED OXYGEN 55; BG HCO3 ACT 22.5 mmol/L (22.0-26.0); BG METHEMOGLOBIN 0.2 % (0.0-1.5); BG OXYGEN SATURATION 96.8 % (92.0-98.5); BG OXYHEMOGLOBIN 95.7 % (94.0-97.0); BG PH 7.523 (7.350-7.450); BG PO2 87.1 mmHg (75.0-100.0); BG SAMPLE SITE RIGHT RADIAL; BG TOTAL HEMOGLOBIN 8.9 g/dL (12.0-18.0); BG VENT MODE VENT - AC
[2021-07-08] MEDS: MEROPENEM 1,000 MG in SODIUM CHLORIDE 0.9% 100 ML IV SCH ×2 (09:04→21:45)
[2021-07-08 09:48] LABS: NUCLEATED RED BLOOD CELLS 1 /100 WBC
[2021-07-08 09:49] LABS: PLATELET ESTIMATE MARKEDLY DECREASED
[2021-07-08 09:51] LABS: PLATELET 38 x1000/uL (130-400)
[2021-07-08] MEDS ORDERED: SODIUM PHOS,M-BASIC-D-BASIC 20 MM in DEXT 5% WATER 243.3333 ML IV SCH (11:00)
[2021-07-08] MEDS: METOCLOPRAMIDE HCL 10MG/2ML VIAL IV SCH ×3 (11:26→23:26)
[2021-07-09] VITALS (89 sets, daily range): BP systolic 99–135; BP diastolic 45–90
[2021-07-09] MEDS: ACETYLCYSTEINE 100MG/ML 10% VIAL 4ML INH SCH ×4 (00:39→20:35)
[2021-07-09] MEDS: IPRATROPIUM BROMIDE (0.02%) 0.5MG/2.5ML NEB HHN SCH ×6 (00:39→20:35)
[2021-07-09] MEDS: PHENYLEPHRINE 100 MG in DEXT 5% WATER 240 ML IV PRN ×5 (01:23→20:13)
[2021-07-09 05:57] LABS: HEMATOCRIT. 27.2 % (42.0-52.0); HEMOGLOBIN. 8.8 g/dL (14.0-18.0); MEAN CORPUSCULAR HEMOGLOBIN 32.9 pg (28.0-32.0); MEAN CORPUSCULAR VOLUME 102.4 fL (80.0-94.0); MEAN PLATELET VOLUME 10.8 fl (7.4-10.4); RED BLOOD CELL COUNT 2.66 mill/uL (4.7-6.1); RED CELL DISTRIBUTION WIDTH 32.9 % (11.6-14.6)
[2021-07-09] MEDS: BLOOD SUGAR DIAGNOSTIC STRIP TEST SCH ×4 (06:00→23:31)
[2021-07-09 06:36] LABS: PHOSPHORUS 2.5 mg/dL (2.5-4.9)
[2021-07-09] MEDS: HYDROCORTISONE SOD SUCCINATE 100 MG/2 ML VIAL IV SCH ×3 (06:37→21:40)
[2021-07-09] MEDS: METOCLOPRAMIDE HCL 10MG/2ML VIAL IV SCH ×4 (06:38→23:34)
[2021-07-09] MEDS: ACETAMINOPHEN 650MG/20.3ML UDC PO PRN (06:38)
[2021-07-09] MEDS: INSULIN LISPRO 100 UNITS/ML SUBCUT SCH ×4 (06:38→23:30)
[2021-07-09 07:02] LABS: PLATELET 39 x1000/uL (130-400)
[2021-07-09 07:07] LABS: ANTI-NUCLEAR ANTIBODIES DIRECT Negative (Negative)
[2021-07-09] MEDS: DEXT 5%/0.9% NACL 1,000 ML IV SCH (08:17)
[2021-07-09 08:36] LABS: NUCLEATED RED BLOOD CELLS 12 /100 WBC
[2021-07-09 08:37] LABS: PLATELET ESTIMATE MARKEDLY DECREASED
[2021-07-09 09:19] LABS: BG BASE EXCESS -1.9 mmol/L (-2.0-2.0); BG CARBOXYHEMOGLOBIN 0.9 % (0.5-1.5); BG DEOXYHEMOGLOBIN 1.1 % (0.0-5.0); BG FRACTION INSPIRED OXYGEN 55; BG HCO3 ACT 20.7 mmol/L (22.0-26.0); BG METHEMOGLOBIN 0.2 % (0.0-1.5); BG OXYGEN SATURATION 98.9 % (92.0-98.5); BG OXYHEMOGLOBIN 97.8 % (94.0-97.0); BG PCO2 27.9 mmHg (35.0-45.0); BG PH 7.489 (7.350-7.450); BG PO2 126.4 mmHg (75.0-100.0); BG SAMPLE SITE RIGHT RADIAL; BG TOTAL HEMOGLOBIN 9.1 g/dL (12.0-18.0); BG VENT MODE VENT - AC
[2021-07-09] MEDS: NOREPINEPHRINE 32 MG in DEXTROSE 5% WATER 250 ML IV PRN (09:20)
[2021-07-09] MEDS: MEROPENEM 1,000 MG in SODIUM CHLORIDE 0.9% 100 ML IV SCH ×2 (09:30→21:39)
[2021-07-09] MEDS: DILTIAZEM 125MG/125ML PMX 125 ML IV PRN (14:15)
[2021-07-09 15:02] LABS: CLARITY URINE TURBID (CLEAR); COLOR URINE DARK YELLOW (YELLOW); KETONES URINE TRACE (NEGATIVE); LEUKOCYTE ESTERASE URINE 1+ (NEGATIVE); NITRITE URINE POSITIVE (NEGATIVE); OCCULT BLOOD URINE 3+ (NEGATIVE); PROTEIN URINE 2+ (NEGATIVE); SPECIFIC GRAVITY URINE 1.018 (1.005-1.030)
[2021-07-09] MEDS: FLUCONAZOLE 400MG/200ML BAG 200 ML IV SCH (16:12)
[2021-07-10] VITALS (90 sets, daily range): BP systolic 94–147; BP diastolic 45–78
[2021-07-10] MEDS: IPRATROPIUM BROMIDE (0.02%) 0.5MG/2.5ML NEB HHN SCH ×6 (00:25→20:24)
[2021-07-10] MEDS: PHENYLEPHRINE 100 MG in DEXT 5% WATER 240 ML IV PRN ×4 (02:05→19:21)
[2021-07-10] MEDS: INSULIN LISPRO 100 UNITS/ML SUBCUT SCH ×4 (06:00→23:50)
[2021-07-10] MEDS: BLOOD SUGAR DIAGNOSTIC STRIP TEST SCH ×4 (06:06→23:49)
[2021-07-10] MEDS: HYDROCORTISONE SOD SUCCINATE 100 MG/2 ML VIAL IV SCH ×3 (06:09→21:39)
[2021-07-10] MEDS: METOCLOPRAMIDE HCL 10MG/2ML VIAL IV SCH ×3 (06:09→17:16)
[2021-07-10 06:28] LABS: PROTHROMBIN TIME 20.8 sec (9.6-11.0)
[2021-07-10] MEDS: NOREPINEPHRINE 32 MG in DEXTROSE 5% WATER 250 ML IV PRN (06:41)
[2021-07-10 06:49] LABS: HEMATOCRIT. 26.1 % (42.0-52.0); HEMOGLOBIN. 8.3 g/dL (14.0-18.0); MEAN CORPUSCULAR HEMOGLOBIN 32.6 pg (28.0-32.0); MEAN CORPUSCULAR VOLUME 101.9 fL (80.0-94.0); MEAN PLATELET VOLUME 11.7 fl (7.4-10.4); RED BLOOD CELL COUNT 2.56 mill/uL (4.7-6.1); RED CELL DISTRIBUTION WIDTH 33.5 % (11.6-14.6)
[2021-07-10 06:58] LABS: PLATELET 41 x1000/uL (130-400)
[2021-07-10 07:43] LABS: BG BASE EXCESS -0.6 mmol/L (-2.0-2.0); BG CARBOXYHEMOGLOBIN 0.9 % (0.5-1.5); BG DEOXYHEMOGLOBIN 2.7 % (0.0-5.0); BG HCO3 ACT 23.1 mmol/L (22.0-26.0); BG METHEMOGLOBIN 0.2 % (0.0-1.5); BG OXYGEN SATURATION 97.3 % (92.0-98.5); BG OXYHEMOGLOBIN 96.2 % (94.0-97.0); BG PO2 95.8 mmHg (75.0-100.0); BG SAMPLE SITE LEFT RADIAL; BG TOTAL HEMOGLOBIN 8.7 g/dL (12.0-18.0); BG VENT MODE VENT - AC
[2021-07-10 08:10] LABS: NUCLEATED RED BLOOD CELLS 2 /100 WBC; PLATELET ESTIMATE DECREASED
[2021-07-10] MEDS: ACETYLCYSTEINE 100MG/ML 10% VIAL 4ML INH SCH ×3 (09:01→20:24)
[2021-07-10] MEDS: MEROPENEM 1,000 MG in SODIUM CHLORIDE 0.9% 100 ML IV SCH (10:16)
[2021-07-10] MEDS: DILTIAZEM HCL 60MG TABLET PO SCH ×2 (13:09→17:16)
[2021-07-10] MEDS: FLUCONAZOLE 400MG/200ML BAG 200 ML IV SCH (16:44)
[2021-07-10] MEDS: VANCOMYCIN 1000MG/20ML ORAL SOLN PO SCH (18:40)
[2021-07-11] VITALS (93 sets, daily range): BP systolic 96–134; BP diastolic 47–79
[2021-07-11] MEDS: DILTIAZEM HCL 60MG TABLET PO SCH ×4 (00:02→17:33)
[2021-07-11] MEDS: METOCLOPRAMIDE HCL 10MG/2ML VIAL IV SCH ×4 (00:02→17:41)
[2021-07-11] MEDS: IPRATROPIUM BROMIDE (0.02%) 0.5MG/2.5ML NEB HHN SCH ×6 (00:22→20:36)
[2021-07-11] MEDS: VANCOMYCIN 1000MG/20ML ORAL SOLN PO SCH ×4 (00:45→17:41)
[2021-07-11 05:21] LABS: HEMATOCRIT. 23.3 % (42.0-52.0); HEMOGLOBIN. 7.6 g/dL (14.0-18.0); MEAN CORPUSCULAR HEMOGLOBIN 33.4 pg (28.0-32.0); MEAN CORPUSCULAR VOLUME 101.6 fL (80.0-94.0); RED BLOOD CELL COUNT 2.29 mill/uL (4.7-6.1)
[2021-07-11] MEDS: HYDROCORTISONE SOD SUCCINATE 100 MG/2 ML VIAL IV SCH ×2 (05:49→17:41)
[2021-07-11] MEDS: BLOOD SUGAR DIAGNOSTIC STRIP TEST SCH ×3 (05:53→17:41)
[2021-07-11] MEDS: INSULIN LISPRO 100 UNITS/ML SUBCUT SCH ×3 (06:00→17:42)
[2021-07-11 07:25] LABS: PLATELET ESTIMATE MARKEDLY DECREASED
[2021-07-11 07:29] LABS: MEAN PLATELET VOLUME 11.8 fl (7.4-10.4); PLATELET 41 x1000/uL (130-400)
[2021-07-11] MEDS: PHENYLEPHRINE 100 MG in DEXT 5% WATER 240 ML IV PRN (08:00)
[2021-07-11] MEDS: MEROPENEM 500 MG in SODIUM CHLORIDE 0.9% 50 ML IV SCH (08:30)
[2021-07-11] MEDS: ACETYLCYSTEINE 100MG/ML 10% VIAL 4ML INH SCH (08:44)
[2021-07-11 09:02] LABS: BG DEOXYHEMOGLOBIN 5.1 % (0.0-5.0); BG FRACTION INSPIRED OXYGEN 40; BG HCO3 ACT 23.5 mmol/L (22.0-26.0); BG OXYGEN SATURATION 94.8 % (92.0-98.5); BG OXYHEMOGLOBIN 92.9 % (94.0-97.0); BG PCO2 33.5 mmHg (35.0-45.0); BG PH 7.464 (7.350-7.450); BG PO2 76.7 mmHg (75.0-100.0); BG SAMPLE SITE RIGHT RADIAL; BG TOTAL HEMOGLOBIN 8.2 g/dL (12.0-18.0); BG VENT MODE VENT - AC
[2021-07-11] MEDS: FLUCONAZOLE 400MG/200ML BAG 200 ML IV SCH (15:00)
[2021-07-12] VITALS (43 sets, daily range): BP systolic 97–140; BP diastolic 46–99
[2021-07-12] MEDS: IPRATROPIUM BROMIDE (0.02%) 0.5MG/2.5ML NEB HHN SCH ×6 (00:09→20:13)
[2021-07-12] MEDS: ACETYLCYSTEINE 100MG/ML 10% VIAL 4ML INH SCH (00:09)
[2021-07-12] MEDS: METOCLOPRAMIDE HCL 10MG/2ML VIAL IV SCH ×5 (00:12→23:10)
[2021-07-12] MEDS: DILTIAZEM HCL 60MG TABLET PO SCH ×5 (00:13→23:09)
[2021-07-12] MEDS: VANCOMYCIN 1000MG/20ML ORAL SOLN PO SCH ×5 (00:13→23:10)
[2021-07-12] MEDS: BLOOD SUGAR DIAGNOSTIC STRIP TEST SCH ×5 (00:20→23:10)
[2021-07-12] MEDS: INSULIN LISPRO 100 UNITS/ML SUBCUT SCH ×5 (06:00→23:10)
[2021-07-12 07:55] LABS: BG BASE EXCESS 1.2 mmol/L (-2.0-2.0); BG CARBOXYHEMOGLOBIN 0.4 % (0.5-1.5); BG DEOXYHEMOGLOBIN 2.7 % (0.0-5.0); BG HCO3 ACT 24.6 mmol/L (22.0-26.0); BG METHEMOGLOBIN 0.4 % (0.0-1.5); BG OXYGEN SATURATION 97.3 % (92.0-98.5); BG OXYHEMOGLOBIN 96.5 % (94.0-97.0); BG PCO2 34.1 mmHg (35.0-45.0); BG PH 7.476 (7.350-7.450); BG PO2 96.4 mmHg (75.0-100.0); BG SAMPLE SITE LEFT RADIAL; BG TOTAL HEMOGLOBIN 8.9 g/dL (12.0-18.0); BG VENT MODE VENT - AC
[2021-07-12] MEDS: MEROPENEM 500 MG in SODIUM CHLORIDE 0.9% 50 ML IV SCH (09:00)
[2021-07-12] MEDS: HYDROCORTISONE SOD SUCCINATE 100 MG/2 ML VIAL IV SCH (09:00)
[2021-07-12] MEDS: FLUCONAZOLE 400MG/200ML BAG 200 ML IV SCH (15:00)
[2021-07-12 19:18] LABS: CREATINE KINASE 218 IU/L (39-308)
[2021-07-13] VITALS (32 sets, daily range): BP systolic 97–130; BP diastolic 42–78
[2021-07-13] MEDS: IPRATROPIUM BROMIDE (0.02%) 0.5MG/2.5ML NEB HHN SCH ×7 (00:22→23:49)
[2021-07-13] MEDS: DILTIAZEM HCL 60MG TABLET PO SCH ×4 (05:30→23:29)
[2021-07-13] MEDS: VANCOMYCIN 1000MG/20ML ORAL SOLN PO SCH ×4 (05:32→23:29)
[2021-07-13] MEDS: METOCLOPRAMIDE HCL 10MG/2ML VIAL IV SCH ×4 (05:32→23:28)
[2021-07-13] MEDS: BLOOD SUGAR DIAGNOSTIC STRIP TEST SCH ×4 (05:32→23:28)
[2021-07-13 05:40] LABS: HEMATOCRIT. 25.4 % (42.0-52.0); HEMOGLOBIN. 8.5 g/dL (14.0-18.0); MEAN CORPUSCULAR HEMOGLOBIN 34.5 pg (28.0-32.0); MEAN CORPUSCULAR VOLUME 103.2 fL (80.0-94.0); PLATELET 68 x1000/uL (130-400); RED BLOOD CELL COUNT 2.46 mill/uL (4.7-6.1); RED CELL DISTRIBUTION WIDTH 35.4 % (11.6-14.6)
[2021-07-13] MEDS: INSULIN LISPRO 100 UNITS/ML SUBCUT SCH ×4 (05:53→23:28)
[2021-07-13 09:03] LABS: BG BASE EXCESS 1.1 mmol/L (-2.0-2.0); BG CARBOXYHEMOGLOBIN 1.4 % (0.5-1.5); BG DEOXYHEMOGLOBIN 1.1 % (0.0-5.0); BG FRACTION INSPIRED OXYGEN 40; BG HCO3 ACT 25.1 mmol/L (22.0-26.0); BG METHEMOGLOBIN 0.3 % (0.0-1.5); BG OXYGEN SATURATION 98.9 % (92.0-98.5); BG OXYHEMOGLOBIN 97.2 % (94.0-97.0); BG PCO2 36.8 mmHg (35.0-45.0); BG PH 7.451 (7.350-7.450); BG PO2 124.6 mmHg (75.0-100.0); BG SAMPLE SITE RIGHT RADIAL; BG VENT MODE VENT - SIMV
[2021-07-13] MEDS: MEROPENEM 500 MG in SODIUM CHLORIDE 0.9% 50 ML IV SCH (09:14)
[2021-07-13 10:33] LABS: NUCLEATED RED BLOOD CELLS 1 /100 WBC
[2021-07-13 10:34] LABS: PLATELET ESTIMATE DECREASED
[2021-07-13] MEDS: FLUCONAZOLE 400MG/200ML BAG 200 ML IV SCH (15:00)
[2021-07-14] VITALS (31 sets, daily range): BP systolic 81–131; BP diastolic 26–75
[2021-07-14] MEDS: IPRATROPIUM BROMIDE (0.02%) 0.5MG/2.5ML NEB HHN SCH ×5 (03:47→20:25)
[2021-07-14] MEDS: BLOOD SUGAR DIAGNOSTIC STRIP TEST SCH ×3 (05:34→17:17)
[2021-07-14] MEDS: VANCOMYCIN 1000MG/20ML ORAL SOLN PO SCH ×3 (05:34→17:02)
[2021-07-14] MEDS: METOCLOPRAMIDE HCL 10MG/2ML VIAL IV SCH ×4 (05:34→23:18)
[2021-07-14] MEDS: DILTIAZEM HCL 60MG TABLET PO SCH ×4 (05:34→23:18)
[2021-07-14] MEDS: INSULIN LISPRO 100 UNITS/ML SUBCUT SCH ×3 (05:35→17:17)
[2021-07-14] MEDS: MEROPENEM 500 MG in SODIUM CHLORIDE 0.9% 50 ML IV SCH (09:13)
[2021-07-14] MEDS: ACETAMINOPHEN 650MG/20.3ML UDC PO PRN ×3 (10:19→18:51)
[2021-07-14] MEDS ORDERED: MORPHINE SULFATE 2 MG/ML CPJ (NOT FOR IM USE) IV PRN (11:30)
[2021-07-14] MEDS ORDERED: NALOXONE HCL 0.4MG/ML VIAL IV PRN (11:30)
[2021-07-14] MEDS ORDERED: HYDROMORPHONE HCL/PF 2MG/ML CPJ IV PRN (12:00)
[2021-07-14 12:39] LABS: BG BASE EXCESS 3.9 mmol/L (-2.0-2.0); BG CARBOXYHEMOGLOBIN 1.2 % (0.5-1.5); BG DEOXYHEMOGLOBIN 1.4 % (0.0-5.0); BG FRACTION INSPIRED OXYGEN 40; BG HCO3 ACT 28.2 mmol/L (22.0-26.0); BG METHEMOGLOBIN 0.3 % (0.0-1.5); BG OXYGEN SATURATION 98.6 % (92.0-98.5); BG OXYHEMOGLOBIN 97.1 % (94.0-97.0); BG PCO2 41.3 mmHg (35.0-45.0); BG PH 7.452 (7.350-7.450); BG PO2 116.3 mmHg (75.0-100.0); BG SAMPLE SITE LEFT RADIAL; BG TOTAL HEMOGLOBIN 8.6 g/dL (12.0-18.0); BG VENT MODE VENT - CPAP
[2021-07-14] MEDS: FLUCONAZOLE 400MG/200ML BAG 200 ML IV SCH (14:46)
[2021-07-14 16:55] LABS: HEPATITIS B SURFACE ANTIGEN NEGATIVE
[2021-07-15] VITALS (97 sets, daily range): BP systolic 77–135; BP diastolic 26–104
[2021-07-15] MEDS: IPRATROPIUM BROMIDE (0.02%) 0.5MG/2.5ML NEB HHN SCH ×6 (00:10→20:18)
[2021-07-15] MEDS: INSULIN LISPRO 100 UNITS/ML SUBCUT SCH ×4 (01:00→17:43)
[2021-07-15] MEDS: VANCOMYCIN 1000MG/20ML ORAL SOLN PO SCH ×4 (01:10→17:43)
[2021-07-15 04:32] LABS: HEMATOCRIT. 27.1 % (42.0-52.0); HEMOGLOBIN. 8.6 g/dL (14.0-18.0); MEAN CORPUSCULAR HEMOGLOBIN 34.1 pg (28.0-32.0); MEAN CORPUSCULAR VOLUME 108.1 fL (80.0-94.0); MEAN PLATELET VOLUME 9.9 fl (7.4-10.4); PLATELET 85 x1000/uL (130-400); RED BLOOD CELL COUNT 2.51 mill/uL (4.7-6.1); RED CELL DISTRIBUTION WIDTH 35.4 % (11.6-14.6)
[2021-07-15 04:39] LABS: CHLORIDE 110 mEq/L (98-107)
[2021-07-15 05:35] LABS: PLATELET ESTIMATE DECREAS
[2021-07-15] MEDS: METOCLOPRAMIDE HCL 10MG/2ML VIAL IV SCH ×3 (05:54→17:43)
[2021-07-15] MEDS: DILTIAZEM HCL 60MG TABLET PO SCH ×3 (05:54→17:43)
[2021-07-15] MEDS: BLOOD SUGAR DIAGNOSTIC STRIP TEST SCH ×4 (06:26→17:43)
[2021-07-15] MEDS: MEROPENEM 500 MG in SODIUM CHLORIDE 0.9% 50 ML IV SCH (08:25)
[2021-07-15] MEDS: PHENYLEPHRINE 100 MG in DEXT 5% WATER 240 ML IV PRN ×2 (08:56→16:17)
[2021-07-15] MEDS ORDERED: ALBUMIN HUMAN 12.5GM/50ML (25%) IV SCH (15:30)
[2021-07-15] MEDS: ALBUMIN HUMAN 12.5GM/50ML (25%) IV SCH (17:18)
[2021-07-16] VITALS (84 sets, daily range): BP systolic 60–163; BP diastolic 23–109
[2021-07-16] MEDS: IPRATROPIUM BROMIDE (0.02%) 0.5MG/2.5ML NEB HHN SCH ×6 (00:33→21:17)
[2021-07-16] MEDS: ALBUMIN HUMAN 12.5GM/50ML (25%) IV SCH ×3 (01:53→17:54)
[2021-07-16] MEDS: METOCLOPRAMIDE HCL 10MG/2ML VIAL IV SCH ×3 (06:00→11:53)
[2021-07-16] MEDS: DILTIAZEM HCL 60MG TABLET PO SCH ×4 (06:00→17:21)
[2021-07-16] MEDS: VANCOMYCIN 1000MG/20ML ORAL SOLN PO SCH ×4 (06:00→17:21)
[2021-07-16] MEDS: INSULIN LISPRO 100 UNITS/ML SUBCUT SCH ×4 (06:00→17:21)
[2021-07-16 06:26] LABS: HEMATOCRIT. 26.8 % (42.0-52.0); HEMOGLOBIN. 8.7 g/dL (14.0-18.0); MEAN CORPUSCULAR HEMOGLOBIN 34.9 pg (28.0-32.0); MEAN CORPUSCULAR VOLUME 107.2 fL (80.0-94.0); MEAN PLATELET VOLUME 9.6 fl (7.4-10.4); PLATELET 80 x1000/uL (130-400); RED CELL DISTRIBUTION WIDTH 34.7 % (11.6-14.6)
[2021-07-16] MEDS: BLOOD SUGAR DIAGNOSTIC STRIP TEST SCH ×4 (06:51→17:21)
[2021-07-16 07:10] LABS: CHLORIDE 114 mEq/L (98-107)
[2021-07-16 07:17] LABS: TOTAL IRON BINDING CAPACITY 167 ug/dL (250-450)
[2021-07-16 07:34] LABS: VITAMIN B12 SERUM > 2000.0 pg/mL (211-911)
[2021-07-16] MEDS: PANTOPRAZOLE SODIUM 40 MG/VIAL IV SCH (08:24)
[2021-07-16] MEDS: MEROPENEM 500 MG in SODIUM CHLORIDE 0.9% 50 ML IV SCH (08:24)
[2021-07-16 08:45] LABS: PLATELET ESTIMATE DECREASED
[2021-07-16 12:09] LABS: FERRITIN 1056 ng/mL (22-322)
[2021-07-16] MEDS: DEXTROSE 5% WATER 1,000 ML IV SCH (12:31)
[2021-07-17] VITALS (23 sets, daily range): BP systolic 86–131; BP diastolic 44–100
[2021-07-17] MEDS: IPRATROPIUM BROMIDE (0.02%) 0.5MG/2.5ML NEB HHN SCH ×6 (00:42→20:44)
[2021-07-17 06:46] LABS: CHLORIDE 114 mEq/L (98-107)
[2021-07-17 07:01] LABS: HEMATOCRIT. 25.8 % (42.0-52.0); HEMOGLOBIN. 8.5 g/dL (14.0-18.0); MEAN CORPUSCULAR HEMOGLOBIN 34.8 pg (28.0-32.0); MEAN CORPUSCULAR VOLUME 105.1 fL (80.0-94.0); MEAN PLATELET VOLUME 9.2 fl (7.4-10.4); PLATELET 56 x1000/uL (130-400); RED BLOOD CELL COUNT 2.45 mill/uL (4.7-6.1); RED CELL DISTRIBUTION WIDTH 35.3 % (11.6-14.6)
[2021-07-17] MEDS: PANTOPRAZOLE SODIUM 40 MG/VIAL IV SCH (08:48)
[2021-07-17] MEDS: BLOOD SUGAR DIAGNOSTIC STRIP TEST SCH ×2 (12:00→17:15)
[2021-07-17] MEDS: INSULIN LISPRO 100 UNITS/ML SUBCUT SCH ×2 (12:00→17:14)
[2021-07-17] MEDS: DILTIAZEM HCL 60MG TABLET PO SCH ×3 (12:00→17:14)
[2021-07-17] MEDS: METOCLOPRAMIDE HCL 10MG/2ML VIAL IV SCH ×3 (12:52→17:15)
[2021-07-17] MEDS: DEXTROSE 5% WATER 1,000 ML IV SCH (12:52)
[2021-07-17 14:07] LABS: PLATELET ESTIMATE DECREASED
[2021-07-18] VITALS (12 sets, daily range): BP systolic 89–130; BP diastolic 40–86
[2021-07-18] MEDS: METOCLOPRAMIDE HCL 10MG/2ML VIAL IV SCH ×4 (00:04→18:11)
[2021-07-18] MEDS: BLOOD SUGAR DIAGNOSTIC STRIP TEST SCH ×4 (00:09→18:20)
[2021-07-18] MEDS: IPRATROPIUM BROMIDE (0.02%) 0.5MG/2.5ML NEB HHN SCH ×6 (02:19→20:58)
[2021-07-18] MEDS: DILTIAZEM HCL 60MG TABLET PO SCH ×4 (05:29→18:00)
[2021-07-18] MEDS: INSULIN LISPRO 100 UNITS/ML SUBCUT SCH ×4 (05:29→18:00)
[2021-07-18 06:07] LABS: HEMATOCRIT. 26.3 % (42.0-52.0); HEMOGLOBIN. 8.5 g/dL (14.0-18.0); MEAN CORPUSCULAR HEMOGLOBIN 34.4 pg (28.0-32.0); MEAN CORPUSCULAR VOLUME 106.1 fL (80.0-94.0); MEAN PLATELET VOLUME 9.2 fl (7.4-10.4); PLATELET 58 x1000/uL (130-400); RED BLOOD CELL COUNT 2.48 mill/uL (4.7-6.1); RED CELL DISTRIBUTION WIDTH 34.8 % (11.6-14.6)
[2021-07-18] MEDS: PANTOPRAZOLE SODIUM 40 MG/VIAL IV SCH (08:20)
[2021-07-18 08:39] LABS: CHLORIDE 114 mEq/L (98-107)
[2021-07-18 08:45] LABS: PLATELET ESTIMATE DECREASED
[2021-07-18] MEDS: DEXTROSE 5% WATER 1,000 ML IV SCH (12:44)
[2021-07-18] MEDS ORDERED: NALOXONE HCL 0.4MG/ML VIAL IV PRN (16:15)
[2021-07-19] VITALS (12 sets, daily range): BP systolic 91–119; BP diastolic 54–72
[2021-07-19] MEDS: BLOOD SUGAR DIAGNOSTIC STRIP TEST SCH ×4 (00:15→17:01)
[2021-07-19] MEDS: METOCLOPRAMIDE HCL 10MG/2ML VIAL IV SCH ×4 (00:20→17:15)
[2021-07-19] MEDS: IPRATROPIUM BROMIDE (0.02%) 0.5MG/2.5ML NEB HHN SCH ×6 (01:17→20:37)
[2021-07-19] MEDS: DILTIAZEM HCL 60MG TABLET PO SCH ×4 (05:05→17:01)
[2021-07-19] MEDS: INSULIN LISPRO 100 UNITS/ML SUBCUT SCH ×4 (05:06→17:01)
[2021-07-19] MEDS: PANTOPRAZOLE SODIUM 40 MG/VIAL IV SCH (08:30)
[2021-07-19] MEDS: DEXTROSE 5% WATER 1,000 ML IV SCH (12:42)
[2021-07-19 16:22] LABS: HEMATOCRIT. 26.1 % (42.0-52.0); MEAN CORPUSCULAR HEMOGLOBIN 34.4 pg (28.0-32.0); MEAN CORPUSCULAR VOLUME 112.5 fL (80.0-94.0); RED BLOOD CELL COUNT 2.32 mill/uL (4.7-6.1); RED CELL DISTRIBUTION WIDTH 35.2 % (11.6-14.6)
[2021-07-19 16:34] LABS: PLATELET 44 x1000/uL (130-400)
[2021-07-19 17:08] LABS: PLATELET ESTIMATE MARKEDLY DECREASED
[2021-07-19] MEDS: NYSTATIN 100,000 UNITS/GM CREAM 15GM TOP SCH ×2 (17:15→21:14)
[2021-07-20] VITALS (12 sets, daily range): BP systolic 90–122; BP diastolic 43–76
[2021-07-20] MEDS: IPRATROPIUM BROMIDE (0.02%) 0.5MG/2.5ML NEB HHN SCH ×7 (00:48→22:00)
[2021-07-20] MEDS: DILTIAZEM HCL 60MG TABLET PO SCH ×5 (01:53→23:16)
[2021-07-20] MEDS: METOCLOPRAMIDE HCL 10MG/2ML VIAL IV SCH ×5 (01:54→23:17)
[2021-07-20] MEDS: BLOOD SUGAR DIAGNOSTIC STRIP TEST SCH ×5 (05:59→23:17)
[2021-07-20] MEDS: NYSTATIN 100,000 UNITS/GM CREAM 15GM TOP SCH ×3 (06:00→21:08)
[2021-07-20] MEDS: INSULIN LISPRO 100 UNITS/ML SUBCUT SCH ×5 (06:00→23:17)
[2021-07-20] MEDS: DEXTROSE 5% WATER 1,000 ML IV SCH (12:23)
[2021-07-20] MEDS: PANTOPRAZOLE SODIUM 40 MG/VIAL IV SCH (12:24)
[2021-07-21] VITALS (10 sets, daily range): BP systolic 91–114; BP diastolic 52–69
[2021-07-21] MEDS: IPRATROPIUM BROMIDE (0.02%) 0.5MG/2.5ML NEB HHN SCH ×4 (02:00→15:08)
[2021-07-21] MEDS: INSULIN LISPRO 100 UNITS/ML SUBCUT SCH ×2 (05:47→12:00)
[2021-07-21] MEDS: NYSTATIN 100,000 UNITS/GM CREAM 15GM TOP SCH ×2 (05:47→13:06)
[2021-07-21] MEDS: BLOOD SUGAR DIAGNOSTIC STRIP TEST SCH ×2 (05:47→11:15)
[2021-07-21] MEDS: DILTIAZEM HCL 60MG TABLET PO SCH ×2 (05:47→11:14)
[2021-07-21] MEDS: METOCLOPRAMIDE HCL 10MG/2ML VIAL IV SCH ×2 (05:48→12:28)
[2021-07-21] MEDS: PANTOPRAZOLE SODIUM 40 MG/VIAL IV SCH (08:10)
[2021-07-21] MEDS: DEXTROSE 5% WATER 1,000 ML IV SCH (12:29)
== END 2021-07-21 16:02 | disposition hospice, home (50) | DRG 720 ==
LOC: ER 10:31 → MICUSO 13:33 → EDBEDREQSVC 15:49 → ENRESERV 21:46 → EDBEDREQTM 22:10 → EDBEDREQ 22:10 → 5EST 07-16 23:35
PROVIDERS: ADMIT Hospitalist; ATTEND Hospitalist
PROC: 5A1955Z Respiratory Ventilation, Greater than 96 Consecutive Hours (ICD-10-PCS; principal; 2021-07-06)
PROC: 02HV33Z Insertion of Infusion Device into Superior Vena Cava, Percutaneous Approach (ICD-10-PCS; 2021-07-06)
PROC: 0BH17EZ Insertion of Endotracheal Airway into Trachea, Via Natural or Artificial Opening (ICD-10-PCS; 2021-07-06)
PROC: 5A09557 Assistance with Respiratory Ventilation, Greater than 96 Consecutive Hours, Continuous Positive Airway Pressure (ICD-10-PCS; 2021-07-15)
PROC: 5A1D70Z Performance of Urinary Filtration, Intermittent, Less than 6 Hours Per Day (ICD-10-PCS; 2021-07-18)
PROC: 5A1D70Z Performance of Urinary Filtration, Intermittent, Less than 6 Hours Per Day (ICD-10-PCS; 2021-07-20)
DX: A41.51 Sepsis due to Escherichia coli [E. coli] (principal); B37.1 Pulmonary candidiasis; N17.0 Acute kidney failure with tubular necrosis; J96.21 Acute and chronic respiratory failure with hypoxia; R65.21 Severe sepsis with septic shock; D68.59 Other primary thrombophilia; E11.649 Type 2 diabetes mellitus with hypoglycemia without coma; I48.20 Chronic atrial fibrillation, unspecified; B36.9 Superficial mycosis, unspecified; G92.8 Other toxic encephalopathy; Z66 Do not resuscitate; S90.822A Blister (nonthermal), left foot, initial encounter; I21.4 Non-ST elevation (NSTEMI) myocardial infarction; E87.1 Hypo-osmolality and hyponatremia; I42.7 Cardiomyopathy due to drug and external agent; E87.6 Hypokalemia; F14.10 Cocaine abuse, uncomplicated; K76.0 Fatty (change of) liver, not elsewhere classified; E78.5 Hyperlipidemia, unspecified; D53.9 Nutritional anemia, unspecified; E83.42 Hypomagnesemia; I27.29 Other secondary pulmonary hypertension; C18.9 Malignant neoplasm of colon, unspecified; N39.0 Urinary tract infection, site not specified; F41.9 Anxiety disorder, unspecified; I25.10 Atherosclerotic heart disease of native coronary artery without angina pectoris; K52.9 Noninfective gastroenteritis and colitis, unspecified; J96.22 Acute and chronic respiratory failure with hypercapnia; K40.20 Bilateral inguinal hernia, without obstruction or gangrene, not specified as recurrent; K80.20 Calculus of gallbladder without cholecystitis without obstruction; I13.0 Hypertensive heart and chronic kidney disease with heart failure and stage 1 through stage 4 chronic kidney disease, or unspecified chronic kidney disease; I50.43 Acute on chronic combined systolic (congestive) and diastolic (congestive) heart failure; T50.905A Adverse effect of unspecified drugs, medicaments and biological substances, initial encounter; Z20.822 Contact with and (suspected) exposure to COVID-19; N18.9 Chronic kidney disease, unspecified; D69.6 Thrombocytopenia, unspecified; E11.22 Type 2 diabetes mellitus with diabetic chronic kidney disease; F10.10 Alcohol abuse, uncomplicated; E66.01 Morbid (severe) obesity due to excess calories; K70.31 Alcoholic cirrhosis of liver with ascites; Y90.9 Presence of alcohol in blood, level not specified; X58.XXXA Exposure to other specified factors, initial encounter; Z85.038 Personal history of other malignant neoplasm of large intestine; Z79.01 Long term (current) use of anticoagulants; Z79.899 Other long term (current) drug therapy; Z90.49 Acquired absence of other specified parts of digestive tract; Y93.89 Activity, other specified; Y92.89 Other specified places as the place of occurrence of the external cause; Y99.8 Other external cause status; Z51.5 Encounter for palliative care; Z86.73 Personal history of transient ischemic attack (TIA), and cerebral infarction without residual deficits; Z68.41 Body mass index [BMI] 40.0-44.9, adult; I99.8 Other disorder of circulatory system
CPT/HCPCS: 31500; 36415; 36556; 36600; 71045; 71250; 74176; 76700; 76937; 80048; 80053; 80061; 80076; 80202; 80305; 80307; 80320; 80329; 81003; 82105; 82140; 82248; 82375; 82378; 82533; 82550; 82607; 82728; 82746; 82805; 82962; 83540; 83550; 83605; 83735; 83880; 83930; 83935; 84100; 84134; 84145; 84295; 84300; 84439; 84443; 84484; 85025; 85379; 85384; 86038; 86160; 86301; 86705; 86706; 86709; 86803; 86850; 86900; 87070; 87077; 87106; 87186; 87340; 87426; 93005; 93306; 93923; 93970; 94002; 94003; 94640; 94660; 99291; C1752; C9113; J0278; J0692; J1160; J1170; J1250; J1450; J1644; J1720; J1815; J1940; J2185; J2270; J2370; J2765; J3010; J3370; J3475; J3480; J3490; J7030; J7042; J7050; J7060; J7070; J7608; P9047; G0480